=== PATIENT | female | born 1930 | race Caucasian/White ===

== ENCOUNTER 2017-02-02 08:59 | Outpatient (CLI) ==
[2016-06-08 11:54] VITALS: BMI 29.2
[2017-02-02 09:13] LABS: BASOPHILS # (AUTO) 0.1 K/uL (0-0.2); BASOPHILS % (AUTO) 1.3 % (0.0-3.0); EOSINOPHILS # (AUTO) 0.3 K/ul (0.0-0.7); EOSINOPHILS % (AUTO) 4.9 % (0.0-7.0); HEMATOCRIT 39.2 % (37.0-47.0); HEMOGLOBIN 12.9 g/dl (12.0-16.0); IMMATURE GRANULOCYTE % (AUTO) 0.3 % (0.0-5.0); LYMPHOCYTES # (AUTO) 1.4 K/uL (0.60-3.4); LYMPHOCYTES % (AUTO) 21.6 (10.0-50.0); MEAN CORPUSCULAR HEMOGLOBIN 32.9 pg (27.0-31.0); MEAN CORPUSCULAR HGB CONC 32.9 (31.8-35.4); MONOCYTES # (AUTO) 0.5 K/uL (0.4-2.0); MONOCYTES % (AUTO) 7.2 (0-10); NEUTROPHILS # (AUTO) 4.1 K/ul (2.0-6.9); NEUTROPHILS % (AUTO) 64.7; PLATELET COUNT 199 10^3/uL (140-440); RED BLOOD COUNT 3.92 10^6/ul (4.20-5.40); WHITE BLOOD COUNT 6.38 K/ul (4.6-10.2)
[2017-02-02 09:52] LABS: ALBUMIN 3.8 g/dL (3.4-5.0); ALBUMIN/GLOBULIN RATIO 1.06; ANION GAP 15.1; BILIRUBIN,TOTAL 0.72 mg/dL (0.00-1.20); BUN/CREATININE RATIO 21.73; CALCIUM 9.8 mg/dL (8.2-10.2); CHOL/HDL RATIO 2.9 (4.5-5.5); CREATININE 1.84 mg/dL (0.60-1.30); POTASSIUM 5.1 mmol/L (3.5-5.10); TOTAL PROTEIN 7.4 g/dL (5.8-8.1)
== END 2017-02-02 09:00 | disposition home or self-care (01) ==
LOC: LAB 08:59
PROVIDERS: ATTEND Nurse Practitioner Family
DX: E55.9 Vitamin D deficiency, unspecified (principal); I10 Essential (primary) hypertension; Z72.0 Tobacco use
CPT/HCPCS: 36415; 80053; 80061; 82306; 84443; 85025

== ENCOUNTER 2017-08-04 10:12 | Outpatient (CLI) ==
[2016-06-08 11:54] VITALS: BMI 29.2
[2017-08-04 10:32] LABS: BASOPHILS # (AUTO) 0.1 K/uL (0-0.2); BASOPHILS % (AUTO) 0.7 % (0.0-3.0); EOSINOPHILS # (AUTO) 0.3 K/ul (0.0-0.7); HEMATOCRIT 36.6 % (37.0-47.0); HEMOGLOBIN 11.9 g/dl (12.0-16.0); IMMATURE GRANULOCYTE % (AUTO) 0.6 % (0.0-5.0); LYMPHOCYTES # (AUTO) 1.1 K/uL (0.60-3.4); MEAN CORPUSCULAR HEMOGLOBIN 33.1 pg (27.0-31.0); MEAN CORPUSCULAR HGB CONC 32.5 (31.8-35.4); MEAN CORPUSCULAR VOLUME 101.9 fl (81.0-99.0); MONOCYTES # (AUTO) 0.6 K/uL (0.4-2.0); MONOCYTES % (AUTO) 7.1 (0-10); NEUTROPHILS # (AUTO) 5.9 K/ul (2.0-6.9); NEUTROPHILS % (AUTO) 73.6; PLATELET COUNT 145 10^3/uL (140-440); RED BLOOD COUNT 3.59 10^6/ul (4.20-5.40); WHITE BLOOD COUNT 8.05 K/ul (4.6-10.2)
[2017-08-04 10:52] LABS: ALBUMIN 3.4 g/dL (3.4-5.0); ALBUMIN/GLOBULIN RATIO 0.87; ANION GAP 13.9; BILIRUBIN,TOTAL 0.8 mg/dL (0.00-1.20); BUN/CREATININE RATIO 21.71; CALCIUM 9.6 mg/dL (8.2-10.2); CHOL/HDL RATIO 2.6 (4.5-5.5); CREATININE 1.98 mg/dL (0.60-1.30); POTASSIUM 4.9 mmol/L (3.5-5.10); TOTAL PROTEIN 7.3 g/dL (5.8-8.1)
--- NOTE | 2017-08-04 11:18 | DI ---
EXAM: Two views of the chest. History: Acute upper respiratory infection. Comparison: Chest radiograph 06/08/2016 Findings: Heart is mildly enlarged. Atherosclerotic vascular calcifications. Pacer device. IVC fi lter seen within the upper abdomen. Bibasilar subsegmental atelectasis. No definite acute infiltrat es. No appreciable pleural fluid and no pneumothorax. Fibrosis again seen within the lungs. Impression: 1. No definite acute infiltrates. 2. Mild cardiomegaly. 3. Pulmonary fibrosis
== END 2017-08-04 10:13 | disposition home or self-care (01) ==
LOC: RAD 10:12
PROVIDERS: ATTEND Emergency Medicine
DX: J06.9 Acute upper respiratory infection, unspecified (principal); I50.9 Heart failure, unspecified; J44.9 Chronic obstructive pulmonary disease, unspecified; I10 Essential (primary) hypertension; E78.5 Hyperlipidemia, unspecified; Z72.0 Tobacco use
CPT/HCPCS: 36415; 80053; 80061; 85025

== ENCOUNTER 2017-08-09 16:20 | Inpatient (IN) | payer OTHER ==
[2017-08-09] MEDS ORDERED: DUONEB NEB STA (16:29)
[2017-08-09] MEDS ORDERED: SOLU-MEDROL 125 MG IVP STA (16:46)
--- NOTE | 2017-08-09 17:39 | CT ---
EXAM: CT of the chest without contrast History: Short of breath and cough. Comparison: Chest radiograph 08/04/2017, chest CT 11/11/2015 Technique: Multiplanar CT images through the thorax were obtained without the administration of IV c ontrast Findings: Heart is enlarged. Coronary calcifications. No pericardial effusion. No pathologically e nlarged thoracic lymph nodes. Great vessels are unremarkable. Calcified granulomas again seen withi n the thorax. No consolidated pneumonia. No pleural fluid and no pneumothorax. No change in the pu lmonary fibrosis. No suspicious lung nodules or lung masses. Within the visualized upper abdomen, nonspecific bowel gas pattern with ileus suggested on the student dean film. Metallic density seen within the IVC could represent a filter but is only partially visualized . Correlate clinically. No acute osseous abnormalities. Osteopenia and degenerative changes of the s pine. Impression: 1. Stable cardiomegaly and coronary artery disease. 2. No change in the pulmonary fibrosis. 3. No acute infiltrates.
[2017-08-09] MEDS ORDERED: ROCEPHIN 1 GM in SODIUM CHLORIDE 50 ML IV STA (18:05)
--- NOTE | 2017-08-09 18:08 | ED.PDOC ---
General ED Provider: Dr. CARA GUDINO Chief Complaint: Shortness of Air Stated Complaint: short of breath cough flu like symptoms Time Seen by Physician: 16:27 Mode of Arrival: Wheelchair Information Source: Patient Exam Limitations: No limitations Primary Care Provider: JOSE BOJORQUEZ Nursing and Triage Documentation Reviewed and Agree: Yes Reviewed sepsis parameters & appropriate labs ordered?: Yes (seen with entire nursing staff and [employer]) System Inflammatory Response Syndrome: Not Applicable Sepsis Protocol: For patient's 13 years and over: Temp is 96.8 and below OR 101 and greater Pulse >90 BPM Resp >20/minute Acutely Altered Mental Status Are patient's symptoms suggestive of a new infection, such as: -Pneumonia -Skin, Soft Tissue -Endocarditis -UTI -Bone, Joint Infection -Implantable Device -Acute Abdominal Infection -Wound Infection -Meningitis -Blood Stream Catheter Infection -Unknown Respiratory Complaint Exam - Respiratory Complaint/Exam Onset/Duration: 3 DAYS WORSE TODAY COUGHING Symptoms Are: Still present Timing: Intermittent Initial Severity: Moderate Current Severity: Mild Location: Throat, Chest Character: Reports: Non-productive cough, Dry cough Alleviating: Reports: None Associated Signs and Symptoms: Reports: URI, Nasal congestion. Denies: Rapid breathing, Dyspnea, Fever, Chills, Chest pain, Pleuritic chest pain, Wheezing, Hemoptysis, Dizziness, Calf pain, Calf swelling, Edema, Hoarseness, Sinus discomfort, Vomiting, Sore throat, Weight loss, Decreased oral intake, Increased thirst, Increased appetite, Increased urination Related History: Reports: Similar episode History of Healthcare-Acquired Pneumonia: No Related Surgical History: Reports: None Pulmonary Embolism Risk Factors: Bedrest Cardiac Risk Factors: Reports: Prior [place], Elevated lipids Pseudomonas Risk Factors: Reports: Chronic Lung Disease Tuberculosis Risk Factors: Reports: None Status Asthmaticus Risk Factors: Reports: None Home Oxygen Use: No Recent Stress Test: No Recent Echo/LV Function: No Current Antibiotic Use: No Respiratory Distress: None Inadequate Respiratory Effort: No Dysphagia Present: No Stridor Present: No JVD Present: No Accessory Muscle Use: No Retractions: Not Present Diminished Breath Sounds: No Prolonged Respiration: Expiratory phase Sinus Tenderness: None Grunting Respirations: No Kussmaul Respirations: No Differential Diagnoses: Pneumonia, Bronchitis, Lower Resp. Infection Review of Systems - Review Of Systems Constitutional: Reports: Malaise Eyes: Reports: No symptoms Ears, Nose, Mouth, Throat: Reports: No symptoms Respiratory: Reports: Cough Cardiac: Reports: No symptoms GI: Reports: No symptoms : Reports: No symptoms Musculoskeletal: Reports: No symptoms Skin: Reports: No symptoms Neurological: Reports: No symptoms Endocrine: Reports: No symptoms Hematologic/Lymphatic: Reports: No symptoms All Other Systems: Reviewed and Negative Past Medical History - Past Medical History Endocrine: Reports: Dyslipidemia Cardiovascular: Reports: [place] Respiratory: Reports: COPD, Asthma Hematological: Reports: None Gastrointestinal: Reports: GERD Genitourinary: Reports: None Neuro/Psych: Reports: Anxiety, Depression Musculoskeletal: Reports: None Cancer: Reports: None Last Menstrual Period: na - Surgical History General Surgical History: Reports: Appendectomy, Pacemaker, Stent Placement - Family History Family History: Reports: Unknown - Social History Smoking Status: Current some day smoker Hx Substance Use: No Alcohol Screening: None - Immunizations Tetanus Shot up to Date: No Physical Exam - Physical Exam Appearance: Ill-appearing Ill-appearing: Moderate Pain Distress: Moderate Eyes: ANTOLIN, EOMI, Conjunctiva clear ENT: Ears normal, Nose normal, Oropharynx normal Respiratory: Rhonchi, Wheezes Cardiovascular: RRR, Pulses normal, No rub, No murmur GI/: Soft, Nontender, No masses, Bowel sounds normal, No Organomegaly Musculoskeletal: Normal strength, ROM intact, No edema, No calf tenderness Skin: Warm, Dry, Normal color Neurological: Sensation intact, Motor intact, Reflexes intact, Cranial nerves intact, Alert, Oriented Psychiatric: Affect appropriate, Mood appropriate Interpretation - Radiology Interpretation Radiology Interpretation By: Radiologist Radiology Results: No acute changes Critical Care Note - Critical Care Note Total Time (mins): 0 Course - Course Hematology/Chemistry: 08/09/17 16:56 08/09/17 16:56 Orders, Labs, Meds: Lab Review 08/09/17 08/09/17 08/09/17 16:56 16:56 16:56 WBC 14.03 H RBC 3.92 L Hgb 12.9 Hct 39.7 MCV 101.3 H MCH 32.9 H MCHC 32.5 RDW Coeff of Thuy 14.1 Plt Count 200 Immature Gran % (Auto) 0.4 Neut % (Auto) 86.8 Lymph % (Auto) 6.2 L [place] % (Auto) 4.9 Eos % (Auto) 0.9 Baso % (Auto) 0.8 Immature Gran # (Auto) 0.1 Neut # 12.2 H Lymph # 0.9 [place] # 0.7 Eos # 0.1 Baso # 0.1 Sodium 138 Potassium 5.1 Chloride 98 Carbon Dioxide 31 Anion Gap 14.1 BUN 41 H Creatinine 2.01 H Estimated GFR (MDRD) 24.00 BUN/Creatinine Ratio 20.39 Glucose 109 Lactic Acid 9.3 Calcium 9.8 Total Bilirubin 0.7 AST 27 ALT 19 Alkaline Phosphatase 201 H Total Creatine Kinase 40 Troponin I 0.0240 Total Protein 8.0 Albumin 3.7 Globulin 4.3 Albumin/Globulin Ratio 0.86 Orders Category Date Time Status ABG DRAW REQUEST Stat CARDIO 08/09/17 16:46 Ordered EKG-(ED ONLY) Stat CARDIO 08/09/17 16:29 Completed NEBULIZER TREATMENT Stat CARDIO 08/09/17 16:29 Completed ED IV/MEDIPORT/POWERPORT .ONCE EMERGENCY 08/09/17 16:46 Active ABG Stat LAB 08/09/17 16:46 Ordered BLOOD CULTURE (ED ONLY) Stat LAB 08/09/17 16:56 Received CBC W/ AUTO DIFF Stat LAB 08/09/17 16:56 Completed COMPREHENSIVE METABOLIC PANEL Stat LAB 08/09/17 16:56 Completed CREATINE KINASE Stat LAB 08/09/17 16:56 Completed LACTIC ACID Stat LAB 08/09/17 16:56 Completed MOLECULAR FLU A/B Stat LAB 08/09/17 17:30 Received PROCALCITONIN Stat LAB 08/09/17 16:56 Received STREP SCREEN Stat LAB 08/09/17 17:30 Received TROPONIN I Stat LAB 08/09/17 16:56 Completed 0.9 % Sodium Chloride [Saline Flush] MEDS 08/09/17 16:46 Active 1 syr IVF PRN PRN Ceftriaxone Sodium [Rocephin] 1 gm MEDS 08/09/17 18:05 Ordered 0.9 % Sodium Chloride [Sodium Chloride] 50 ml IV ONCE Ipratropium/Albuterol Neb [Duoneb] MEDS 08/09/17 16:29 Discontinued 1 vial NEB ONCE STA Methylprednisolone Sod Succ/Pf [Solu-Medrol 125 mg] MEDS 08/09/17 16:46 Discontinued 125 [address] IVP ONCE [address] CHEST W/O CONTRAST Stat RADS 08/09/17 16:47 Completed Medications Generic Name Dose Route Start Last Admin Trade Name Freq PRN Reason Stop Dose Admin Ceftriaxone Sodium 1 gm/ 50 mls @ 75 mls/hr 08/09/17 18:05 Sodium Chloride IV 08/09/17 18:44 ONCE STA Sodium Chloride 1 syr 08/09/17 16:46 08/09/17 17:58 Saline Flush IVF 1 syr PRN PRN Administration To flush IV Discontinued Medications Generic Name Dose Route Start Last Admin Trade Name Phil PRN Reason Stop Dose Admin Albuterol/Ipratropium 1 vial 08/09/17 16:29 08/09/17 17:08 Duoneb NEB 08/09/17 16:30 1 vial ONCE STA Administration Methylprednisolone Sodium Succinate 125 mg 08/09/17 16:46 08/09/17 17:58 Solu-Medrol 125 Mg IVP 08/09/17 16:47 125 mg ONCE STA Administration Vital Signs: Temp Pulse Resp BP Pulse Ox 08/09/17 16:21 98.6 F 64 16 145/81 H 87 L Departure - Departure Time of Disposition: 19:00 Disposition: ADMITTED INPATIENT Discharge Problem: Shortness of breath at rest Instructions: Cold Symptoms (ED), Dyspnea (ED) Condition: Good Pt referred to PMD for follow-up: Yes Additional Instructions: Please call your Family Physician as soon as possible to schedule a follow-up appointment. Allergies/Adverse Reactions: Allergies No Known Allergies Allergy (Verified 08/09/17 16:34) Home Medications: Ambulatory Orders Fish Oil/Dha/Epa [Fish Oil 1,200 mg Fish Oil] 4,000 mg PO DAILY 05/26/14 Multivitamin 1 cap PO DAILY 05/26/14 Ascorbic Acid [Vitamin C] 1,000 mg PO d 03/30/16 Polyethylene Glycol 3350 [Miralax] 17 gm PO EVERY OTHER DAY 03/30/16 Cholecalciferol (Vitamin D3) [Vitamin D] 1 tab PO DAILY 06/08/16 Ferrous Gluconate [Iron] 1 tab PO DAILY 06/08/16 Losartan Potassium [Cozaar] 50 mg PO DAILY 06/08/16 Teriparatide [Forteo] 2.4 ml SQ DAILY 02/06/17 Disposition Discussed With: Patient
[2017-08-09] MEDS ORDERED: ROCEPHIN ONE (18:12)
[2017-08-09 20:35] VITALS: BMI 34.5
[2017-08-09] MEDS ORDERED: NON-FORMULARY MEDICATION (Ascorbic Acid [Vitamin C] 1,000 MG) PO SCH (21:15)
[2017-08-09] MEDS ORDERED: SOLU-MEDROL 125 MG ONE (21:22)
[2017-08-09] MEDS: SODIUM CHLORIDE 1,000 ML IV SCH (21:37)
[2017-08-09] MEDS: LOVENOX SUBCUT SCH (21:38)
[2017-08-09] MEDS: SOLU-MEDROL 40 MG IVP SCH (21:41)
[2017-08-09] MEDS ORDERED: ALBUTEROL 0.083% NEB NEB PRN (23:07)
[2017-08-09] MEDS: DUONEB NEB SCH (23:32)
[2017-08-09] MEDS ORDERED: DUONEB NEB ONE (23:32)
[2017-08-10] MEDS: DUONEB NEB SCH ×4 (04:33→23:22)
[2017-08-10] MEDS: ZANTAC PO SCH ×2 (05:42→17:52)
[2017-08-10] MEDS: COZAAR PO SCH (08:53)
[2017-08-10] MEDS: LIPITOR PO SCH (08:54)
[2017-08-10] MEDS: ZITHROMAX PO SCH (08:55)
[2017-08-10] MEDS: PLAVIX PO SCH (08:55)
[2017-08-10] MEDS: OMEGA-3 FISH OIL PO SCH (08:55)
[2017-08-10] MEDS: VITAMIN C PO SCH (08:56)
[2017-08-10] MEDS: MULTIVITAMIN TABLET PO SCH (08:56)
[2017-08-10] MEDS: FERROUS SULFATE PO SCH (08:56)
[2017-08-10] MEDS: BETAPACE PO SCH ×2 (08:56→20:47)
[2017-08-10] MEDS: ROCEPHIN 1 GM in SODIUM CHLORIDE 50 ML IV SCH (08:57)
[2017-08-10] MEDS: SOLU-MEDROL 40 MG IVP SCH ×2 (08:57→20:47)
[2017-08-10] MEDS: LOVENOX SUBCUT SCH (08:57)
[2017-08-10] MEDS ORDERED: DHA PO SCH (09:00)
[2017-08-10] MEDS ORDERED: NON-FORMULARY MEDICATION (Losartan Potassium 50 MG) PO SCH (09:00)
[2017-08-10] MEDS ORDERED: KEFLEX PO SCH (09:00)
[2017-08-10] MEDS ORDERED: EPA PO SCH (09:00)
[2017-08-10] MEDS ORDERED: FISH OIL PO SCH (09:00)
[2017-08-10] MEDS ORDERED: COMBIVENT RESPIMAT INHAL SPRAY IH SCH (09:00)
[2017-08-10] MEDS ORDERED: NON-FORMULARY MEDICATION (Multivitamin 1 CAP) PO SCH (09:00)
[2017-08-10] MEDS ORDERED: FERROUS GLUCONATE PO SCH (09:00)
[2017-08-10] MEDS: NON-FORMULARY MEDICATION (Calcitriol [Calcitriol] 0.25 MCG) PO SCH (10:00)
--- NOTE | 2017-08-10 10:08 | DI ---
EXAM: Chest one view, frontal view only. HISTORY: Shortness of breath. COMPARISON: 1 day prior. FINDINGS: Right-sided pacemaker again noted. Heart is enlarged. Atherosclerotic calcifications p resent. Chronic interstitial changes in both lungs, greatest in the bases again noted. No new conso lidation, pleural effusion or pneumothorax identified. No acute osseous abnormality is seen. Since the prior study, there has been no significant interval change. IMPRESSION: Interstitial fibrosis, greatest in the bases. No new pulmonary findings.
--- NOTE | 2017-08-10 12:55 | HP ---
DATE OF SERVICE: 08/09/17 CHIEF COMPLAINT: Shortness of breath HISTORY OF PRESENT ILLNESS: This is an 87 year old female came to the emergency room with cough and congestion. Going on the for the two weeks. The patient been seen at the [facility] given outpatient antibiotics for coughing. Shortness of breath was getting worse; coughing and getting yellow/green phlegm. The patient came to the emergency room as shortness of breath was getting worse. The patient was seen by Dr. Eubanks in the emergency room. Temperature at normal. Showed WBC for 14,000 with left shift. ABG showed the pH 7.425, pCO2 45.9, pO2 72, BUN 41, creatinine 2.0 and serology was negative. Ct chest showed some haziness but at that time the patient was admitted to the hospital secondary to the COPD exacerbation, bronchitis/pneumonia, dehydration, acute on chronic renal failure. REVIEW OF SYSTEMS: CONSTITUTIONAL: No fever, no chills. Weakness. Tiredness. HEENT: Normal. ENDOCRINE: No weight gain; no weight loss. CVS: No chest pain. No PND, no orthopnea. Shortness of breath. No PND, no orthopnea. RESPIRATORY: Cough, Congestion. No hemoptysis. GI: No nausea, no vomiting. No abdominal pain. No melena. : No hematuria. No polyuria. MUSCULOSKELETAL: No joint swelling. PSYCHIATRIC: Not anxious. No depression. No suicidal thoughts. No homicidal thoughts. SKIN: Intact, no open lesions. PAST MEDICAL HISTORY: Coronary artery disease with [place] COPD Chronic kidney disease Osteoarthritis Rheumatoid arthritis PAST SURGICAL HISTORY: Cataract surgery Carcinoma removed from the face. Heart stint Pacemaker PERSONAL HISTORY: The patient smokes since teens, no alcohol and no drugs. Family history is significant for the heart problems. MEDICATIONS: Multivitamin Fish oil Albuterol Ascorbic acid Polyethylene Glycol Losartan Ferrous sulfate Vitamin D Forteo Zantac Clotrimazole Calcitriol Cozaar Sotalol Lasix Atorvastatin Clopidogrel DUO NEBS Keflex. ALLERGIES: No known drug allergies PHYSICAL EXAMINATION: V/S: Blood pressure 145/81, respiratory rate 16, heart rate 64, temperature 98.6 , saturation 82 on 2 liters. GENERAL: Sick looking lady lying in the bed. HEENT: Atraumatic, normocephalic. No scleral icterus. Pallor positive. Mucosa dry. NECK: Supple. No JVD, no bruit. No lymphadenopathy. No thyromegaly. HEART: S1, S2 normal. No murmur. No cyanosis or clubbing. No ascites. LUNGS: Decreased with basilar crackles. Expiratory wheeze. No rales or rhonchi. ABDOMEN: Soft, nontender. Bowel sounds are active. No CVA tenderness. No rigidity or guarding. EXTREMITIES: No cyanosis, clubbing, 1+ edema. MUSCULOSKELETAL: Normal joints, no swelling. NEUROLOGIC: The patient is SKIN: Intact; no open lesions. LYMPHATIC: No lymph nodes palpable. LABS: WBC 14.03, hgb 12.9, hct 39.7, plt count 200, blood gasses pH 7.425, pCO2 45.9, pO2 72, sodium 138, potassium 4.5, chloride 98, bicarb 31, BUN 41, creatinine 2.01. ASSESSMENT: 1. Acute on chronic renal failure 2. COPD exacerbation secondary to the bronchitis/some basilar infiltrates so pneumonia 3. History of CAD 4. CHF 5. Hypertension 6. Rheumatoid arthritis PLAN: 1. CBC and CMP today and daily 2. Cardiac enzymes and troponin 3. IV fluids 4. Rocephin 5. DUO NEBS 6. Solu-Medrol TIME SPENT: MORE THAN 75 minutes MTDD
[2017-08-10] MEDS: SODIUM CHLORIDE 1,000 ML IV SCH (13:42)
[2017-08-10] MEDS: TERIPARATIDE SQ SCH (13:42)
[2017-08-10] MEDS: LOTRIMIN TP SCH ×2 (13:43→20:49)
--- NOTE | 2017-08-10 15:21 | PN ---
DATE OF SERVICE: 08/10/17 SUBJECTIVE: The patient was admitted with the COPD exacerbation and pneumonia, cough, congestion, shortness of breath and acute on chronic renal failure. The patient is still coughing and congested. Wheezing. REVIEW OF SYSTEMS: CONSTITUTIONAL: No fever, no chills. HEENT: Normal. ENDOCRINE: No weight gain, no weight loss. CVS: No angina symptoms. No CHF symptoms. No palpitations. No atypical chest pain for CAD. No shortness of breath. No PND, no orthopnea. RESPIRATORY: Cough, no hemoptysis. GI: No nausea, no vomiting. No abdominal pain. : No hematuria. No polyuria. MUSCULOSKELETAL:. No joint swelling. PSYCHIATRIC: Not anxious. No depression. No suicidal thoughts. No homicidal thoughts. SKIN: Intact. No rash. PHYSICAL EXAMINATION: V/S: Blood pressure 142/79, respiratory rate 20, heart rate 96.8 with saturation 95 on 2 liters. HEENT: Normocephalic, atraumatic. Mucosa dry. Pallor positive. No icterus. NECK: Supple. No JVD, no carotid bruit. No lymphadenopathy. LUNGS: Bilateral entry is decreased and basilar crackles. Defused wheezing. No rales or rhonchi. HEART: S1, S2 normal. No S3. No murmur, gallop or regurgitation. ABDOMEN: Soft, nontender. Bowel sounds active. No rigidity. No rebound or guarding. No CVA tenderness. EXTREMITIES: No clubbing, cyanosis. 1+ edema. MUSCULOSKELETAL: No joint swelling. NEUROLOGIC: Awake, alert, oriented times three. No focal deficit. LYMPHATIC: No lymph nodes palpable. SKIN: Intact. LABS: WBC 14.46, hgb 11.6, hct 36.0, plt count 164, Sodium 136, potassium 4.8, chloride 97, bicarb 31, BUN 46, creatinine 2.0 ASSESSMENT: 1. COPD exacerbation secondary to bronchitis and pneumonia 2. Hypoxemia 3. Acute on chronic renal failure 4. Coronary artery disease 5. Congestive heart failure 6. Diabetes 7. Hypertension 8. Dyslipidemia PLAN: 1. Continue Rocephin, Azithromycin, DUO NEBS, Solu-Medrol 2. IV fluids 3. Daily I&O's 4. Lovenox for the DVT prophylaxis. TIME SPENT: More than 35 minutes MTDD
[2017-08-11] MEDS: SODIUM CHLORIDE 1,000 ML IV SCH (02:58)
[2017-08-11] MEDS: ZANTAC PO SCH ×2 (05:36→17:22)
[2017-08-11] MEDS: DUONEB NEB SCH ×4 (05:50→23:18)
[2017-08-11] MEDS ORDERED: CEPACOL SORE THROAT LOZENGE MUCOUSMEMB PRN (07:45)
[2017-08-11] MEDS ORDERED: LASIX IVP STA (07:45)
[2017-08-11] MEDS ORDERED: NORCO 5-325 PO PRN (07:45)
[2017-08-11] MEDS: MULTIVITAMIN TABLET PO SCH (09:24)
[2017-08-11] MEDS: VITAMIN C PO SCH (09:24)
[2017-08-11] MEDS: ROCEPHIN 1 GM in SODIUM CHLORIDE 50 ML IV SCH (09:24)
[2017-08-11] MEDS: LIPITOR PO SCH (09:25)
[2017-08-11] MEDS: FERROUS SULFATE PO SCH (09:25)
[2017-08-11] MEDS: OMEGA-3 FISH OIL PO SCH (09:25)
[2017-08-11] MEDS: COZAAR PO SCH (09:26)
[2017-08-11] MEDS: MUCINEX PO SCH ×2 (09:26→20:55)
[2017-08-11] MEDS: ZITHROMAX PO SCH (09:26)
[2017-08-11] MEDS: BETAPACE PO SCH ×2 (09:26→20:55)
[2017-08-11] MEDS: LOVENOX SUBCUT SCH (09:27)
[2017-08-11] MEDS: LOTRIMIN TP SCH ×2 (09:27→20:56)
[2017-08-11] MEDS: PLAVIX PO SCH (09:27)
[2017-08-11] MEDS: MIRALAX PO SCH (09:29)
[2017-08-11] MEDS: TERIPARATIDE SQ SCH (09:50)
[2017-08-11] MEDS: SOLU-MEDROL 40 MG IVP SCH ×2 (09:54→20:55)
[2017-08-11] MEDS: NON-FORMULARY MEDICATION (Calcitriol [Calcitriol] 0.25 MCG) PO SCH (09:55)
[2017-08-12] MEDS: SODIUM CHLORIDE 1,000 ML IV SCH ×2 (00:22→10:35)
[2017-08-12] MEDS: DUONEB NEB SCH ×4 (03:50→23:50)
[2017-08-12] MEDS: ZANTAC PO SCH ×2 (05:35→17:09)
[2017-08-12] MEDS: ROCEPHIN 1 GM in SODIUM CHLORIDE 50 ML IV SCH (10:33)
[2017-08-12] MEDS: FERROUS SULFATE PO SCH (10:35)
[2017-08-12] MEDS: MUCINEX PO SCH ×2 (10:35→20:44)
[2017-08-12] MEDS: VITAMIN C PO SCH (10:36)
[2017-08-12] MEDS: MULTIVITAMIN TABLET PO SCH (10:36)
[2017-08-12] MEDS: PLAVIX PO SCH (10:37)
[2017-08-12] MEDS: LIPITOR PO SCH (10:37)
[2017-08-12] MEDS: BETAPACE PO SCH ×2 (10:37→20:44)
[2017-08-12] MEDS: COZAAR PO SCH (10:38)
[2017-08-12] MEDS: ZITHROMAX PO SCH (10:38)
[2017-08-12] MEDS: LOVENOX SUBCUT SCH (10:39)
[2017-08-12] MEDS: NON-FORMULARY MEDICATION (Calcitriol [Calcitriol] 0.25 MCG) PO SCH (10:39)
[2017-08-12] MEDS: LOTRIMIN TP SCH ×2 (10:40→20:44)
[2017-08-12] MEDS: OMEGA-3 FISH OIL PO SCH (10:40)
[2017-08-12] MEDS: SOLU-MEDROL 40 MG IVP SCH ×2 (10:40→20:18)
[2017-08-12] MEDS: TERIPARATIDE SQ SCH (10:49)
[2017-08-13] MEDS: SODIUM CHLORIDE 1,000 ML IV SCH ×2 (00:20→16:15)
[2017-08-13] MEDS: DUONEB NEB SCH ×4 (04:30→23:40)
[2017-08-13] MEDS: ZANTAC PO SCH ×3 (08:07→17:08)
[2017-08-13] MEDS: TERIPARATIDE SQ SCH (09:32)
[2017-08-13] MEDS: ROCEPHIN 1 GM in SODIUM CHLORIDE 50 ML IV SCH (09:33)
[2017-08-13] MEDS: LOVENOX SUBCUT SCH (09:33)
[2017-08-13] MEDS: COZAAR PO SCH (09:36)
[2017-08-13] MEDS: VITAMIN C PO SCH (09:36)
[2017-08-13] MEDS: LOTRIMIN TP SCH ×2 (09:36→20:38)
[2017-08-13] MEDS: MUCINEX PO SCH ×2 (09:37→20:37)
[2017-08-13] MEDS: BETAPACE PO SCH ×2 (09:37→20:37)
[2017-08-13] MEDS: LIPITOR PO SCH (09:37)
[2017-08-13] MEDS: PLAVIX PO SCH (09:38)
[2017-08-13] MEDS: MULTIVITAMIN TABLET PO SCH (09:38)
[2017-08-13] MEDS: OMEGA-3 FISH OIL PO SCH (09:39)
[2017-08-13] MEDS: MIRALAX PO SCH (09:40)
[2017-08-13] MEDS: FERROUS SULFATE PO SCH (09:40)
[2017-08-13] MEDS: SOLU-MEDROL 40 MG IVP SCH ×2 (09:41→21:07)
[2017-08-13] MEDS: NON-FORMULARY MEDICATION (Calcitriol [Calcitriol] 0.25 MCG) PO SCH (09:41)
--- NOTE | 2017-08-13 11:24 | CT ---
EXAM: CT scan of the abdomen and pelvis without contrast HISTORY: Highly BUN TECHNIQUE: Imaging of the abdomen and pelvis was performed without intravenous contrast. 3 mm thin axial images and coronal and sagittal reconstructions were provided for interpretation. Comparison none. FINDINGS: The liver, spleen, pancreas, adrenal glands and kidneys appear normal. The proximal urete rs are normal size. Calcifications are seen within the fritz of the kidneys bilaterally. This small bowel loops are normal caliber. There is no free air. No acute abnormalities are seen in the anteri or abdominal wall. IVC filter is present. Small gallstones are identified. The helical images obtained through the pelvis demonstrate a normal appearance of the rectum, urinary bladder. There is diverticular disease of the descending colon and sigmoid colon without acute infl ammation. There is a cystic lesion seen within the left ovary measuring up to 3.6 cm in height, 3.9 c m AP, 3.7 cm transverse. The appendix was not well seen. No definite inflammatory changes are seen i n the right lower quadrant. No lytic or blastic lesions are seen within the osseous structures. Smal l pleural effusions are seen bilaterally. The heart is normal size. Postoperative changes are seen w ithin the proximal left femur. IMPRESSION: No evidence of obstructive uropathy. There is no bowel obstruction. Diffuse diverticular disease of the descending colon and sigmoid colon without acute inflammation. Probable left ovarian cyst measuring up to 3.9 cm maximum. Continued follow-up evaluation with pelvi c ultrasound should be performed to check for resolution. Small bilateral pleural effusions.
[2017-08-13] MEDS ORDERED: MILK OF MAGNESIA PO STA (23:01)
[2017-08-14] MEDS: SODIUM CHLORIDE 1,000 ML IV SCH ×4 (03:53→21:42)
[2017-08-14] MEDS: DUONEB NEB SCH ×4 (04:38→23:06)
[2017-08-14] MEDS: ROCEPHIN 1 GM in SODIUM CHLORIDE 50 ML IV SCH (09:34)
[2017-08-14] MEDS: FERROUS SULFATE PO SCH (09:35)
[2017-08-14] MEDS: LOVENOX SUBCUT SCH (09:35)
[2017-08-14] MEDS: ZANTAC PO SCH ×2 (09:35→16:39)
[2017-08-14] MEDS: LOTRIMIN TP SCH ×2 (09:35→21:42)
[2017-08-14] MEDS: PLAVIX PO SCH (09:35)
[2017-08-14] MEDS: VITAMIN C PO SCH (09:35)
[2017-08-14] MEDS: COZAAR PO SCH (09:36)
[2017-08-14] MEDS: LIPITOR PO SCH (09:36)
[2017-08-14] MEDS: BETAPACE PO SCH ×2 (09:36→21:41)
[2017-08-14] MEDS: SOLU-MEDROL 40 MG IVP SCH ×2 (09:36→21:46)
[2017-08-14] MEDS: MULTIVITAMIN TABLET PO SCH (09:36)
[2017-08-14] MEDS: MUCINEX PO SCH ×2 (09:36→21:41)
[2017-08-14] MEDS: OMEGA-3 FISH OIL PO SCH (09:36)
[2017-08-14] MEDS: TERIPARATIDE SQ SCH (09:42)
[2017-08-14] MEDS: NON-FORMULARY MEDICATION (Calcitriol [Calcitriol] 0.25 MCG) PO SCH (09:42)
[2017-08-15] MEDS: DUONEB NEB SCH ×4 (04:24→23:48)
--- NOTE | 2017-08-15 07:04 | DI ---
EXAM: Chest two view, frontal and lateral views. HISTORY: Pneumonia follow-up. COMPARISON: 08/10/2017. FINDINGS: Right-sided pacemaker again noted. Heart is enlarged. Atherosclerotic calcifications are present. Bibasilar consolidation and diffuse increased interstitial markings are probably unchanged . No large pleural effusion or pneumothorax identified. No acute osseous abnormality identified. I nferior vena cava filter noted. IMPRESSION: Stable appearance of the chest.
[2017-08-15] MEDS: MIRALAX PO SCH (09:54)
[2017-08-15] MEDS: ROCEPHIN 1 GM in SODIUM CHLORIDE 50 ML IV SCH (09:54)
[2017-08-15] MEDS: LOTRIMIN TP SCH ×2 (09:54→20:25)
[2017-08-15] MEDS: LOVENOX SUBCUT SCH (09:55)
[2017-08-15] MEDS: LIPITOR PO SCH (09:55)
[2017-08-15] MEDS: ZANTAC PO SCH (09:55)
[2017-08-15] MEDS: BETAPACE PO SCH ×2 (09:55→20:25)
[2017-08-15] MEDS: OMEGA-3 FISH OIL PO SCH (09:55)
[2017-08-15] MEDS: PLAVIX PO SCH (09:55)
[2017-08-15] MEDS: MUCINEX PO SCH (09:55)
[2017-08-15] MEDS: MULTIVITAMIN TABLET PO SCH (09:55)
[2017-08-15] MEDS: VITAMIN C PO SCH (09:55)
[2017-08-15] MEDS: COZAAR PO SCH (09:56)
[2017-08-15] MEDS: FERROUS SULFATE PO SCH (09:56)
[2017-08-15] MEDS: SOLU-MEDROL 40 MG IVP SCH ×2 (09:56→20:07)
[2017-08-15] MEDS: NON-FORMULARY MEDICATION (Calcitriol [Calcitriol] 0.25 MCG) PO SCH (09:59)
[2017-08-15] MEDS: TERIPARATIDE SQ SCH (10:01)
[2017-08-15] MEDS ORDERED: KAYEXALATE SUSP PO STA (13:19)
--- NOTE | 2017-08-15 14:41 | PN ---
DATE OF SERVICE: 08/11/17 SUBJECTIVE: Still coughing; congested. Right now the patient even has head cold, sinuses are blocked. She is still short of breath. No fever, chills. REVIEW OF SYSTEMS: CONSTITUTIONAL: No fever, no chills. HEENT: Eyes and ears are normal. Nose has congestion. Mouth and throat normal. ENDOCRINE: No weight gain, no weight loss. CVS: Shortness of breath. No angina symptoms. No CHF symptoms. No palpitations. No atypical chest pain for CAD. No PND, no orthopnea. RESPIRATORY: No cough, no hemoptysis. GI: No nausea, no vomiting. No abdominal pain. : No hematuria. No polyuria. MUSCULOSKELETAL:. No joint swelling. PSYCHIATRIC: Not anxious. No depression. No suicidal thoughts. No homicidal thoughts. SKIN: Intact. No rash. PHYSICAL EXAMINATION: V/S: BP 126/68, respiratory rate 20, heart rate 74, temperature 97.6, saturation 98. HEENT: Normocephalic, atraumatic. Mucosa dry. NECK: Supple. No JVD, no carotid bruit. No lymphadenopathy. LUNGS: Decreased basilar crackles. Expiratory wheezing. HEART: S1, S2 normal. No S3. No murmur, gallop or regurgitation. ABDOMEN: Soft, nontender. Bowel sounds active. No rigidity. No rebound or guarding. No CVA tenderness. EXTREMITIES: 1+ edema. No clubbing, cyanosis. MUSCULOSKELETAL: No joint swelling. NEUROLOGIC: Awake, alert, oriented times three. No focal deficit. LYMPHATIC: No lymph nodes palpable. SKIN: Intact. LABS: White count 13.36, hemoglobin 11.0, hematocrit 33.9, platelet count 176. Sodium 139, potassium 5.2, chloride 104, bicarb 27, BUN 59, creatinine 1.58. Glucose 132. ASSESSMENT: 1. COPD EXACERBATION SECONDARY TO PNEUMONIA 2. ACUTE ON CHRONIC RENAL FAILURE 3. ACUTE ON CHRONIC HEART FAILURE 4. CAD 5. CHF 6. DYSLIPIDEMIA PLAN: 1. Will add Mucinex b.i.d. 2. Continue Azithromycin p.o. daily 3. Rocephin 1 gm daily 4. Duonebs 5. Lovenox 6. Solu-Medrol 40 mg q.12 7. IV fluids at 40 mL/hr 8. Will follow the patient in daily rounds TIME SPENT: More than 35 minutes MTDD
--- NOTE | 2017-08-15 14:49 | PN ---
DATE OF SERVICE: 08/12/17 SUBJECTIVE: Cough and congestion with some shortness of breath, unable to bring up phlegm. REVIEW OF SYSTEMS: CONSTITUTIONAL: No fever, no chills. HEENT: Normal. ENDOCRINE: No weight gain, no weight loss. CVS: Shortness of breath. No angina symptoms. No CHF symptoms. No palpitations. No atypical chest pain for CAD. No PND, no orthopnea. RESPIRATORY: Cough and congestion. No hemoptysis. GI: No nausea, no vomiting. No abdominal pain. : No hematuria. No polyuria. MUSCULOSKELETAL:. No joint swelling. PSYCHIATRIC: Not anxious. No depression. No suicidal thoughts. No homicidal thoughts. SKIN: Intact. No rash. PHYSICAL EXAMINATION: V/S: BP 137/72, respiratory rate 20, heart rate 62, temperature 97.5. Saturation 91%. HEENT: Normocephalic, atraumatic. Mucosa dry. Pallor positive. No icterus. NECK: Supple. No JVD, no carotid bruit. No lymphadenopathy. LUNGS: Basilar crackles with mild wheezing. No rales or rhonchi. HEART: S1, S2 normal. No S3. No murmur, gallop or regurgitation. ABDOMEN: Soft, nontender. Bowel sounds active. No rigidity. No rebound or guarding. No CVA tenderness. EXTREMITIES: 1+ edema. No clubbing, cyanosis. MUSCULOSKELETAL: No joint swelling. NEUROLOGIC: Awake, alert, oriented times three. No focal deficit. LYMPHATIC: No lymph nodes palpable. SKIN: Intact. LABS: White count 13.36, hemoglobin 11.0, hematocrit 33.9, platelet count 176. Sodium 139, potassium 5.2, chloride 104, bicarb 27, BUN 59, creatinine 1.81, glucose 132. ASSESSMENT: 1. COPD EXACERBATION SECONDARY TO BRONCHITIS 2. ACUTE ON CHRONIC RENAL FAILURE 3. CAD 4. CHF PLAN: 1. Continue breathing treatments 2. Duonebs 3. Xopenex 4. Rocephin 5. Azithromycin 6. Solu-Medrol 7. IV fluids at 40 mL/hr 8. Sotalol 80 q.12 TIME SPENT: More than 35 minutes MTDD
[2017-08-15] MEDS: SODIUM CHLORIDE 1,000 ML IV SCH (14:50)
[2017-08-15] MEDS: COREG PO SCH (16:51)
[2017-08-16] MEDS: DUONEB NEB SCH ×3 (05:23→20:12)
--- NOTE | 2017-08-16 07:11 | PN ---
DATE OF SERVICE: 08/13/17 SUBJECTIVE: Admitted with COPD exacerbation, shortness of breath with minimal exertion and is still coughing. No fever, no chills. REVIEW OF SYSTEMS: CONSTITUTIONAL: No fever, no chills. HEENT: Normal. ENDOCRINE: No weight gain, no weight loss. CVS: No angina symptoms. No CHF symptoms. No palpitations. No atypical chest pain for CAD. Shortness of breath on minimal exertion. No PND, no orthopnea. RESPIRATORY: Cough. No hemoptysis. GI: No nausea, no vomiting. No abdominal pain. : No hematuria. No polyuria. MUSCULOSKELETAL:. No joint swelling. PSYCHIATRIC: Not anxious. No depression. No suicidal thoughts. No homicidal thoughts. SKIN: Intact. No rash. PHYSICAL EXAMINATION: V/S: BP 149/96, respiratory rate 16, heart rate 76, temperature 97.4. Saturation 99% on 3.5L. HEENT: Normocephalic, atraumatic. Mucosa dry. NECK: Supple. No JVD, no carotid bruit. No lymphadenopathy. LUNGS: Bilateral entry is decreased. Basilar crackles. HEART: S1, S2 normal. No S3. No murmur, gallop or regurgitation. ABDOMEN: Soft, nontender. Bowel sounds active. No rigidity. No rebound or guarding. No CVA tenderness. EXTREMITIES: No clubbing, cyanosis or pedal edema. MUSCULOSKELETAL: Grossly intact. NEUROLOGIC: Awake, alert. No focal deficit. LYMPHATIC: No lymph nodes palpable. SKIN: Intact. LABS: Sodium 139, potassium 5.2, chloride 104, bicarb 27, BUN 59, creatinine 1.18. White count 13.36, hemoglobin 11.3, hematocrit 33.9, platelet count 176. ASSESSMENT: 1. COPD EXACERBATION SECONDARY TO BRONCHITIS 2. SHORTNESS OF BREATH 3. ACUTE ON CHRONIC RENAL FAILURE 4. CAD 5. CHF PLAN: 1. Will get chest x-ray 2. Continue Albuterol 3. Rocephin 1 gm daily 4. Plavix 5. Lovenox for DVT prophylaxis 6. Hydrocodone 7. Duonebs 8. Losartan 9. IV fluids at 40 mL/hr 10. Will get CBC, CMP today TIME SPENT: More than 30 minutes MTDD
[2017-08-16] MEDS: SODIUM CHLORIDE 1,000 ML IV SCH (07:43)
[2017-08-16] MEDS ORDERED: ZITHROMAX PO STA (07:52)
[2017-08-16] MEDS ORDERED: KAYEXALATE SUSP PO STA (07:54)
[2017-08-16] MEDS: LIPITOR PO SCH (08:48)
[2017-08-16] MEDS: BETAPACE PO SCH ×2 (08:49→20:37)
[2017-08-16] MEDS: PLAVIX PO SCH (08:49)
[2017-08-16] MEDS: SOLU-MEDROL 40 MG IVP SCH ×2 (08:50→20:12)
[2017-08-16] MEDS: TERIPARATIDE SQ SCH (10:02)
[2017-08-16] MEDS: LOVENOX SUBCUT SCH (10:03)
[2017-08-16] MEDS: LOTRIMIN TP SCH ×2 (10:03→20:37)
[2017-08-16] MEDS: COREG PO SCH ×2 (10:04→17:30)
--- NOTE | 2017-08-16 10:56 | DI ---
EXAM: Chest two views HISTORY: Follow up bibasilar consolidation COMPARISON: 08/13/2017 TECHNIQUE: Two views of the chest were performed FINDINGS: Right-sided cardiac pacer. Heart is enlarged, unchanged. Mediastinal contour unchanged. Bibasilar consolidation. Small pleural effusion. No visible pneumothorax. Heart is enlarged, uncha nged. Mediastinal contour unchanged. IMPRESSION: Bibasilar consolidation likely representing pneumonia, unchanged. Small left pleural eff usion.
--- NOTE | 2017-08-16 15:43 | PN ---
DATE OF SERVICE: 08/16/17 SUBJECTIVE: The patient still some shortness of breath with minimal exertion, coughing and congestion. BUN and Creatinine are 71. The patient can get up and go to the bathroom but she still complaints about some shortness of breath. She has been more active then usual so far but worried about the kidney function. REVIEW OF SYSTEMS: CONSTITUTIONAL: No fever, no chills. HEENT: Normal. ENDOCRINE: No weight gain, no weight loss. CVS: No angina symptoms. No CHF symptoms. No palpitations. No atypical chest pain for CAD. No shortness of breath. No PND, no orthopnea. RESPIRATORY: Cough, no hemoptysis. GI: No nausea, no vomiting. No abdominal pain. : No hematuria. No polyuria. MUSCULOSKELETAL: No joint swelling. PSYCHIATRIC: Not anxious. No depression. No suicidal thoughts. No homicidal thoughts. SKIN: Intact. No rash. PHYSICAL EXAMINATION: V/S: Blood pressure 140/78, respiratory 20, heart rate 69, temperature 97.4 and saturation 96 on 2 liters. HEENT: Normocephalic, atraumatic. Mucosa dry. Pallor positive. No icterus. NECK: Supple. No JVD, no carotid bruit. No lymphadenopathy. LUNGS: Bilateral entry is decreased and basilar crackles. Clear to auscultation. No rales or rhonchi. HEART: S1, S2 normal. No S3. No murmur, gallop or regurgitation. ABDOMEN: Soft, nontender. Bowel sounds active. No rigidity. No rebound or guarding. No CVA tenderness. EXTREMITIES: No clubbing, cyanosis. 1+ edema. MUSCULOSKELETAL: No joint swelling. NEUROLOGIC: Awake, alert, oriented times three. No focal deficit. LYMPHATIC: No lymph nodes palpable. SKIN: Intact. LABS: Sodium 140, potassium 5.7, chloride 109, bicarb 23, BUN 72, creatinine 1.66, WBC 11.04. hgb 11.8, hct 36.9, plt count 200. ASSESSMENT: 1. Acute on chronic renal failure 2. COPD Exacerbation secondary to the bronchitis 3. CAD 4. CHF 5. Dyslipidemia PLAN: 1. Continue the Azithromycin 2. Lovenox for the DVT prophylaxis 3. Solu-Medrol 4. IV fluids 5. Coreg 6. Sotalol TIME SPENT: More than 35 minutes MTDD
[2017-08-17] MEDS: SODIUM CHLORIDE 1,000 ML IV SCH ×2 (00:09→17:03)
[2017-08-17] MEDS: DUONEB NEB SCH ×4 (04:21→22:46)
--- NOTE | 2017-08-17 08:34 | PN ---
DATE OF SERVICE: 08/14/17 SUBJECTIVE: The patient was admitted with COPD exacerbation and the patient now going into the renal failure acute on chronic. REVIEW OF SYSTEMS: CONSTITUTIONAL: No fever, no chills. HEENT: Normal. ENDOCRINE: No weight gain, no weight loss. CVS: No angina symptoms. No CHF symptoms. No palpitations. No atypical chest pain for CAD. No shortness of breath. No PND, no orthopnea. RESPIRATORY: Cough is less, no hemoptysis. Breathing is better. GI: No nausea, no vomiting. No abdominal pain. : No hematuria. No polyuria. MUSCULOSKELETAL: No joint swelling. PSYCHIATRIC: Not anxious. No depression. No suicidal thoughts. No homicidal thoughts. SKIN: Intact. No rash. PHYSICAL EXAMINATION: V/S: Blood pressure 126/67, respiratory rate 20, heart rate 70, temperature 97 and saturation is 97 on 2 liters. HEENT: Normocephalic, atraumatic. Mucosa dry. Pallor positive. No icterus. NECK: Supple. No JVD, no carotid bruit. No lymphadenopathy. LUNGS: Decreased and basilar crackles. No rales or rhonchi. HEART: S1, S2 normal. No S3. No murmur, gallop or regurgitation. ABDOMEN: Soft, nontender. Bowel sounds active. No rigidity. No rebound or guarding. No CVA tenderness. EXTREMITIES: No clubbing, cyanosis. 1+ edema. MUSCULOSKELETAL: No joint swelling. NEUROLOGIC: Awake, alert, oriented times three. No focal deficit. LYMPHATIC: No lymph nodes palpable. SKIN: Intact. LABS: WBC 9.38, hgb 11.9, hct 38.6, plt count 151, sodium 136, potassium 5.6, chloride 105, bicarb 21, BUN 70, creatinine 1.92. CT of abdomen did not show any acute findings. ASSESSMENT: 1. Acute on chronic renal failure 2. COPD exacerbation secondary to the bronchitis 3. CAD 4. CHF PLAN: 1. Continue IV fluids at 60ml per hour 2. Daily I&O's TIME SPENT: More than 30 minutes MTDD
[2017-08-17] MEDS: LOVENOX SUBCUT SCH (08:45)
[2017-08-17] MEDS: SOLU-MEDROL 40 MG IVP SCH ×2 (08:45→20:31)
[2017-08-17] MEDS: MIRALAX PO SCH (08:45)
[2017-08-17] MEDS: BETAPACE PO SCH ×2 (08:46→20:28)
[2017-08-17] MEDS: ZITHROMAX PO SCH (08:46)
[2017-08-17] MEDS: LIPITOR PO SCH (08:46)
[2017-08-17] MEDS: PLAVIX PO SCH (08:46)
[2017-08-17] MEDS: COREG PO SCH ×2 (08:46→17:03)
[2017-08-17] MEDS: LOTRIMIN TP SCH ×2 (08:57→20:28)
[2017-08-17] MEDS: TERIPARATIDE SQ SCH (17:03)
[2017-08-18] MEDS: DUONEB NEB SCH ×4 (04:22→23:36)
[2017-08-18] MEDS: CARDIZEM PO SCH ×3 (09:22→20:31)
[2017-08-18] MEDS: PREDNISONE PO SCH ×2 (09:22→16:36)
[2017-08-18] MEDS: TERIPARATIDE SQ SCH (09:23)
[2017-08-18] MEDS: LIPITOR PO SCH (09:23)
[2017-08-18] MEDS: ZITHROMAX PO SCH (09:23)
[2017-08-18] MEDS: COREG PO SCH ×2 (09:23→16:36)
[2017-08-18] MEDS: PLAVIX PO SCH (09:23)
[2017-08-18] MEDS: LOVENOX SUBCUT SCH (09:23)
[2017-08-18] MEDS: LOTRIMIN TP SCH ×2 (09:24→20:31)
--- NOTE | 2017-08-18 10:22 | RS.PTINEVL ---
Subjective - Patient information Date of Evaluation: 08/18/17 Date of Arrival on Unit: 08/09/17 Usual Living Arrangement: Alone Living Arrangement Comments: self Home Environment: Apartment, Level/No stairs Medical History: Hypertension, Arthritis Medical History Comments:: PACEMAKER, chronic kidney disease, CAD Subjective Information/ Patient Comments:: Patient reports using a rolling walker all the time at home. States she has always been short of breath with activity and states it is her own fault because she smoked all her life. States she hopes to go home soon. States she does have help at home when she needs it. - Level of function Prior to this admission, the patient could do the following:: Independent Selfcare, Independent ADL's, Independent Ambulation Current Equipment Used at Home: Walker, oxygen, Interventions - Objective Patient Orientation: Person, Place, Time, Situation Current Interventions: IV's, Oxygen Range of Motion - ROM Right Upper Extremity AROM: WFL's Left Upper Extremity AROM: WFL's Right Lower Extremity AROM: WFL's Left Lower Extremity AROM: WFL's Muscle Strength - Muscle Strength Comments:: Muscle strength generally 4 to 4+/5. Balance - Sitting Balance and Reactions Static Sitting Balance: Good Dynamic Sitting Balance: Good - Standing Balance and Reactions Static Standing Balance: Good Dynamic Standing Balance: Good Functional Mobility - Bed Mobility Scooting: Independent Supine to Sit: Independent - Transfers Sit to Stand: Set Up Only Stand to Sit: Set Up Only Stand Pivot Transfers: Supervision - Safety Awareness Safety Awareness: Good Ambulation - Ambulation Weight Bearing Status: FWB Assistive Device Used: Rolling Walker Distance: 60 feet Assistance needed with Ambulation: Supervision (for IV pole and oxygen tank) Gait Deviations: Forward posture, Short stride Factors Affecting Ambulation: Breathing/O2 Saturation Treatment time - Time with patient Total treatment time: 16 (mins) Patient Education - Education Patient Education: Education of diagnosis, Home Safety Teaching Recipient: Patient Teaching Methods: Discussion Assessment - Assessment Further Therapy Indicated?: No Comments: Patient presents to be at a high level of function. Her only need for assistance with all mobility is for the IV pole and oxygen tank. Her primary limitation at this time is her breathing, which she states has been an impairment for years. She demonstrates no skilled need for therapy in the hospital setting, but may benefit from Home Health therapy services. Plan Other:: Patient may benefit from Home Health services Frequency of Treatment: One time treatment Duration of Treatment: One Time Treatment Anticipated Discharge Destination: Home Has the Physician been added for Co-signature?: Yes
[2017-08-18] MEDS: SODIUM CHLORIDE 1,000 ML IV SCH (11:05)
--- NOTE | 2017-08-18 13:15 | DI ---
EXAM: Chest two views HISTORY: Oxygen at liters COMPARISON: 08/16/2017 TECHNIQUE: Two views of the chest were performed FINDINGS: Right-sided cardiac pacer. Heart is enlarged and unchanged. Mediastinal contour unchange d. Atherosclerosis. Bibasilar consolidation appears unchanged. Small left pleural effusion. No vis ible pneumothorax. No change from prior examination. IMPRESSION: Bibasilar consolidation likely representing pneumonia. Small left pleural effusion. No change from prior examination.
[2017-08-19] MEDS: CARDIZEM PO SCH ×3 (04:27→20:35)
[2017-08-19] MEDS: SODIUM CHLORIDE 1,000 ML IV SCH (04:27)
[2017-08-19] MEDS: DUONEB NEB SCH ×4 (04:33→20:06)
[2017-08-19] MEDS: PLAVIX PO SCH (09:32)
[2017-08-19] MEDS: LIPITOR PO SCH (09:33)
[2017-08-19] MEDS: ZITHROMAX PO SCH (09:33)
[2017-08-19] MEDS: COREG PO SCH ×2 (09:33→17:16)
[2017-08-19] MEDS: LOVENOX SUBCUT SCH (09:33)
[2017-08-19] MEDS: PREDNISONE PO SCH ×2 (09:33→17:16)
[2017-08-19] MEDS: MIRALAX PO SCH (09:34)
[2017-08-19] MEDS: TERIPARATIDE SQ SCH (09:34)
[2017-08-19] MEDS: LOTRIMIN TP SCH ×2 (09:35→20:37)
[2017-08-19] MEDS: NON-FORMULARY MEDICATION (Calcitriol [Calcitriol] 0.25 MCG) PO SCH (09:35)
[2017-08-20] MEDS: SODIUM CHLORIDE 1,000 ML IV SCH (01:55)
[2017-08-20] MEDS: DUONEB NEB SCH ×4 (05:58→19:56)
[2017-08-20] MEDS: CARDIZEM PO SCH ×3 (06:07→21:20)
[2017-08-20] MEDS: LIPITOR PO SCH (08:33)
[2017-08-20] MEDS: TERIPARATIDE SQ SCH (08:33)
[2017-08-20] MEDS: PREDNISONE PO SCH ×2 (08:33→16:29)
[2017-08-20] MEDS: PLAVIX PO SCH (08:33)
[2017-08-20] MEDS: LOTRIMIN TP SCH ×2 (08:33→21:20)
[2017-08-20] MEDS: COREG PO SCH ×2 (08:33→16:29)
[2017-08-20] MEDS: LOVENOX SUBCUT SCH (08:33)
[2017-08-20] MEDS: ZITHROMAX PO SCH (08:33)
[2017-08-20] MEDS: MUCINEX PO SCH ×2 (08:33→21:20)
[2017-08-20] MEDS: ZAROXOLYN PO SCH (08:34)
[2017-08-20] MEDS: NON-FORMULARY MEDICATION (Calcitriol [Calcitriol] 0.25 MCG) PO SCH (08:34)
[2017-08-20] MEDS ORDERED: CITRATE OF MAGNESIA PO STA (10:53)
[2017-08-20] MEDS ORDERED: SODIUM CHLORIDE 1,000 ML IV SCH (18:58)
[2017-08-21] MEDS: MUCOMYST 20% NEB NEB SCH ×3 (03:45→22:30)
[2017-08-21] MEDS: SODIUM CHLORIDE 1,000 ML IV SCH (03:55)
[2017-08-21] MEDS: DUONEB NEB SCH ×4 (04:47→22:30)
[2017-08-21] MEDS: CARDIZEM PO SCH ×3 (05:15→20:55)
[2017-08-21] MEDS: COREG PO SCH ×2 (08:34→16:31)
[2017-08-21] MEDS: MIRALAX PO SCH (08:34)
[2017-08-21] MEDS: LOVENOX SUBCUT SCH (08:34)
[2017-08-21] MEDS: PLAVIX PO SCH (08:34)
[2017-08-21] MEDS: LIPITOR PO SCH (08:35)
[2017-08-21] MEDS: PREDNISONE PO SCH ×2 (08:35→16:31)
[2017-08-21] MEDS: ZAROXOLYN PO SCH (08:35)
[2017-08-21] MEDS: LOTRIMIN TP SCH ×2 (08:35→20:54)
[2017-08-21] MEDS: MUCINEX PO SCH ×2 (08:35→20:55)
[2017-08-21] MEDS: NON-FORMULARY MEDICATION (Calcitriol [Calcitriol] 0.25 MCG) PO SCH (08:35)
[2017-08-21] MEDS: TERIPARATIDE SQ SCH (08:35)
[2017-08-21] MEDS ORDERED: LASIX IVP STA (09:05)
--- NOTE | 2017-08-21 14:34 | PN ---
DATE OF SERVICE: 08/18/17 SUBJECTIVE: The patient was able to walk to the bathroom by herself and walk with a walker. Still some shortness of breath and resting making it better. Otherwise, urine output has been increased. No PND, no orthopnea. REVIEW OF SYSTEMS: CONSTITUTIONAL: No fever, no chills. HEENT: Normal. ENDOCRINE: No weight gain, no weight loss. CVS: No angina symptoms. No CHF symptoms. No palpitations. No atypical chest pain for CAD. Shortness of breath. No PND, no orthopnea. RESPIRATORY: No cough, no hemoptysis. GI: No nausea, no vomiting. No abdominal pain. : No hematuria. No polyuria. MUSCULOSKELETAL: No joint swelling. PSYCHIATRIC: Not anxious. No depression. No suicidal thoughts. No homicidal thoughts. SKIN: Intact. No rash. PHYSICAL EXAMINATION: V/S: BP 131/79, respiratory rate 20, heart rate 66, temperature 97. Saturation 93 on 2L. HEENT: Normocephalic, atraumatic. Mucosa dry. Pallor positive. No icterus. NECK: Supple. No JVD, no carotid bruit. No lymphadenopathy. LUNGS: Decreased basilar crackles. Clear to auscultation. No rales or rhonchi. HEART: S1, S2 normal. No S3. No murmur, gallop or regurgitation. ABDOMEN: Soft, nontender. Bowel sounds active. No rigidity. No rebound or guarding. No CVA tenderness. EXTREMITIES: 1+ edema. No clubbing or cyanosis. MUSCULOSKELETAL: No joint swelling. NEUROLOGIC: Awake, alert, oriented times three. No focal deficit. LYMPHATIC: No lymph nodes palpable. SKIN: Intact. LABS: Chest x-ray does show bibasilar pneumonia, which has been stable. BUN 56, creatinine 1.56 which is better from yesterday. Glucose 148, sodium 145. Potassium 5.1. White count 11.04, hemoglobin 11.8. ASSESSMENT: 1. ACUTE ON CHRONIC RENAL FAILURE 2. COPD EXACERBATION SECONDARY TO BIBASILAR PNEUMONIA 3. CAD 4. CHF 5. PERMANENT PACEMAKER 6. HISTORY OF CORONARY ARTERY DISEASE 7. AICD PLACEMENT 8. CHRONIC KIDNEY DISEASE PLAN: 1. Out of bed to chair 2. Activity as tolerated 3. Continue Lovenox for DVT prophylaxis 4. Will change IV Solu-Medrol to p.o. Prednisone 10 mg twice a day 5. Azithromycin p.o. TIME SPENT: More than 35 minutes MTDD
--- NOTE | 2017-08-21 14:48 | PN ---
DATE OF SERVICE: 08/19/17 SUBJECTIVE: The patient is treated with COPD exacerbation, dehydration and pneumonia. She went into acute and chronic renal failure. BUN and creatinine is getting better. The patient was able to walk in the corridor with the patient's daughter. She feels a lot better. REVIEW OF SYSTEMS: CONSTITUTIONAL: No fever, no chills. HEENT: Normal. ENDOCRINE: No weight gain, no weight loss. CVS: No angina symptoms. No CHF symptoms. No palpitations. No atypical chest pain for CAD. No shortness of breath. No PND, no orthopnea. RESPIRATORY: No cough, no hemoptysis. GI: No nausea, no vomiting. No abdominal pain. : No hematuria. No polyuria. MUSCULOSKELETAL: No joint swelling. PSYCHIATRIC: Not anxious. No depression. No suicidal thoughts. No homicidal thoughts. SKIN: Intact. No rash. PHYSICAL EXAMINATION: V/S: BP 148/73, respiratory rate 18, heart rate 62, temperature 97.4, saturation 94%. HEENT: Normocephalic, atraumatic. Mucosa dry. Pallor positive. Very hard of hearing. NECK: Supple. No JVD, no carotid bruit. No lymphadenopathy. LUNGS: Decreased with basilar crackles. No rales or rhonchi. HEART: S1, S2 normal. No S3. No murmur, gallop or regurgitation. ABDOMEN: Soft, nontender. Bowel sounds active. No rigidity. No rebound or guarding. No CVA tenderness. EXTREMITIES: 1+ edema. No clubbing or cyanosis. MUSCULOSKELETAL: No joint swelling. NEUROLOGIC: Awake, alert, oriented times three. No focal deficit. LYMPHATIC: No lymph nodes palpable. SKIN: Intact. LABS: Sodium 147, potassium 4.5, chloride 112, bicarb 26, BUN 48, creatinine 1.45, glucose 106. White count 10.09, hemoglobin 11.2, hematocrit 35.8, platelet count 159. ASSESSMENT: 1. STATUS POST ACUTE RENAL FAILURE 2. COPD EXACERBATION AND PNEUMONIA 3. ANEMIA 4. CAD 5. CHF 6. ANGINA PLAN: 1. Continue Rocephin 2. Continue IV fluids 3. Daily I & O's 4. Lovenox for the daily prophylaxis TIME SPENT: More than 35 minutes MTDD
[2017-08-22] MEDS: MUCOMYST 20% NEB NEB SCH ×2 (04:33→21:25)
[2017-08-22] MEDS: DUONEB NEB SCH ×4 (04:35→21:25)
[2017-08-22] MEDS: CARDIZEM PO SCH ×3 (04:37→20:34)
[2017-08-22] MEDS: COREG PO SCH ×2 (08:17→17:38)
[2017-08-22] MEDS: PREDNISONE PO SCH ×2 (08:18→17:38)
--- NOTE | 2017-08-22 09:50 | DI ---
EXAM: Two views of the chest. History: Follow-up pneumonia Comparison: Chest radiograph 08/18/2017 Findings: Heart remains enlarged. Pacer device again seen. Atherosclerotic vascular calcifications . No significant interval change in the left greater than right bibasilar lung infiltrates and small bilateral pleural effusions. No pneumothorax. No acute osseous abnormalities. IVC filter. Impression: No significant interval change in the left greater than right bibasilar lung infiltrates and small bilateral pleural effusions. Persistent cardiomegaly.
[2017-08-22] MEDS: PLAVIX PO SCH (09:54)
[2017-08-22] MEDS: LIPITOR PO SCH (09:54)
[2017-08-22] MEDS: MUCINEX PO SCH ×2 (09:55→20:34)
[2017-08-22] MEDS: LOVENOX SUBCUT SCH (09:56)
[2017-08-22] MEDS: LOTRIMIN TP SCH ×2 (09:57→20:34)
[2017-08-22] MEDS: NON-FORMULARY MEDICATION (Calcitriol [Calcitriol] 0.25 MCG) PO SCH (09:58)
[2017-08-22] MEDS: TERIPARATIDE SQ SCH (10:00)
--- NOTE | 2017-08-22 10:18 | US ---
EXAM: Right upper extremity venous Doppler History: Right upper extremity pain. Technique: Multiple sonographic images through the right upper extremity were obtained. Color duple x Doppler was used to interrogate vascular flow. Findings: The right jugular, subclavian, axillary, brachial, cephalic, basilic, radial and ulnar vei ns demonstrate spontaneous flow with normal compression and normal augmentation. Impression: No sonographic evidence for deep venous thrombosis.
[2017-08-22] MEDS ORDERED: KAYEXALATE SUSP PO STA (11:56)
[2017-08-23] MEDS: CARDIZEM PO SCH ×3 (04:19→21:07)
[2017-08-23] MEDS: DUONEB NEB SCH ×4 (04:33→21:22)
[2017-08-23] MEDS: MUCOMYST 20% NEB NEB SCH ×2 (04:33→21:20)
[2017-08-23] MEDS ORDERED: LASIX IVP STA (08:23)
[2017-08-23] MEDS: PLAVIX PO SCH (09:00)
[2017-08-23] MEDS: LIPITOR PO SCH (09:01)
[2017-08-23] MEDS: MUCINEX PO SCH ×2 (09:01→21:08)
[2017-08-23] MEDS: COREG PO SCH ×2 (09:01→17:29)
[2017-08-23] MEDS: ZAROXOLYN PO SCH (09:01)
[2017-08-23] MEDS: MIRALAX PO SCH (09:01)
[2017-08-23] MEDS: LOVENOX SUBCUT SCH (09:01)
[2017-08-23] MEDS: PREDNISONE PO SCH ×2 (09:01→17:29)
[2017-08-23] MEDS: LOTRIMIN TP SCH ×2 (09:02→22:25)
[2017-08-23] MEDS: TERIPARATIDE SQ SCH (09:03)
[2017-08-23] MEDS: NON-FORMULARY MEDICATION (Calcitriol [Calcitriol] 0.25 MCG) PO SCH (09:03)
[2017-08-24] MEDS: MUCOMYST 20% NEB NEB SCH ×2 (04:28→20:34)
[2017-08-24] MEDS: DUONEB NEB SCH ×4 (04:28→20:34)
[2017-08-24] MEDS: CARDIZEM PO SCH ×3 (05:19→20:11)
[2017-08-24] MEDS: LOVENOX SUBCUT SCH (08:19)
[2017-08-24] MEDS: LOTRIMIN TP SCH ×2 (08:20→20:11)
[2017-08-24] MEDS: LIPITOR PO SCH (08:20)
[2017-08-24] MEDS: PLAVIX PO SCH (08:20)
[2017-08-24] MEDS: COREG PO SCH ×2 (08:20→17:29)
[2017-08-24] MEDS: PREDNISONE PO SCH ×2 (08:20→17:29)
[2017-08-24] MEDS: MUCINEX PO SCH ×2 (08:20→20:11)
[2017-08-24] MEDS: TERIPARATIDE SQ SCH (08:21)
[2017-08-24] MEDS: NON-FORMULARY MEDICATION (Calcitriol [Calcitriol] 0.25 MCG) PO SCH (08:21)
[2017-08-24] MEDS ORDERED: LASIX IVP STA (09:04)
[2017-08-24] MEDS: PROTONIX PO SCH (11:19)
--- NOTE | 2017-08-24 15:24 | PN ---
DATE OF SERVICE: 08/21/17 SUBJECTIVE: The patient more up and about and walking. Right upper extremity has swelling and leg edema more today. Shortness of breath with exertion but she was able to walk. Still has some cough but not able to bring any phlegm. REVIEW OF SYSTEMS: CONSTITUTIONAL: No fever, no chills. HEENT: Normal. ENDOCRINE: No weight gain, no weight loss. CVS: No angina symptoms. No CHF symptoms. No palpitations. No atypical chest pain for CAD. No shortness of breath. No PND, no orthopnea. RESPIRATORY: No cough, no hemoptysis. GI: No nausea, no vomiting. No abdominal pain. : No hematuria. No polyuria. MUSCULOSKELETAL: No joint swelling. PSYCHIATRIC: Not anxious. No depression. No suicidal thoughts. No homicidal thoughts. SKIN: Intact. No rash. PHYSICAL EXAMINATION: V/S: Blood pressure 155/75, respiratory rate 24, heart rate 69, temperature 97.6 and saturation 96% on 2 liters. HEENT: Normocephalic, atraumatic. Mucosa dry. Pallor positive. No icterus. NECK: Supple. No JVD, no carotid bruit. No lymphadenopathy. LUNGS: Basilar crackles. Clear to auscultation. No rales or rhonchi. HEART: S1, S2 normal. No S3. No murmur, gallop or regurgitation. ABDOMEN: Soft, nontender. Bowel sounds active. No rigidity. No rebound or guarding. No CVA tenderness. EXTREMITIES: No clubbing, cyanosis. 1+ edema. MUSCULOSKELETAL: No joint swelling. NEUROLOGIC: Awake, alert, oriented times three. No focal deficit. LYMPHATIC: No lymph nodes palpable. SKIN: Intact. LABS: WBC 10.51, hgb 10.7, hct 34.4, plt count 130, sodium 142, potassium 5.6, chloride 111, bicarb 27, BUN 39, creatinine 1.32 and glucose 118. ASSESSMENT: 1. Status post acute renal failure 2. COPD Exacerbation secondary to the pneumonia and bronchitis 3. Acute on chronic CHF 4. CAD status post stent 5. Dependant edema 6. Anemia 7. Defibrillator PLAN: 1. Continue the DUO NEBS 2. Will add Mucinex 3. Continue Plavix and Lovenox 4. Metolazone MONDAY, MONDAY and MONDAY 5. I&O's TIME SPENT: More than 35 minutes MTDD
[2017-08-25] MEDS: DUONEB NEB SCH ×4 (04:23→21:20)
[2017-08-25] MEDS: MUCOMYST 20% NEB NEB SCH (04:26)
[2017-08-25] MEDS: PROTONIX PO SCH (05:38)
[2017-08-25] MEDS: CARDIZEM PO SCH ×3 (05:38→20:46)
[2017-08-25] MEDS: MIRALAX PO SCH (08:33)
[2017-08-25] MEDS: PLAVIX PO SCH (08:33)
[2017-08-25] MEDS: LOVENOX SUBCUT SCH (08:33)
[2017-08-25] MEDS: NON-FORMULARY MEDICATION (Calcitriol [Calcitriol] 0.25 MCG) PO SCH (08:34)
[2017-08-25] MEDS: TERIPARATIDE SQ SCH (08:34)
[2017-08-25] MEDS: MUCINEX PO SCH ×2 (08:34→20:46)
[2017-08-25] MEDS: LIPITOR PO SCH (08:34)
[2017-08-25] MEDS: LOTRIMIN TP SCH ×2 (08:34→20:46)
[2017-08-25] MEDS: ZAROXOLYN PO SCH (08:34)
[2017-08-25] MEDS: COREG PO SCH ×2 (08:34→16:55)
[2017-08-25] MEDS: PREDNISONE PO SCH ×2 (08:34→16:55)
--- NOTE | 2017-08-25 10:12 | DI ---
EXAM: CHEST FRONTAL AND LATERAL VIEWS HISTORY: Pneumonia. COMPARISON: 08/22/2017 FINDINGS: Stable cardiomegaly. Moderate atherosclerotic disease. Stable right-sided pacemaker unit . Interstitial thickening and patchy density in the bases more noticeable on the left without change since prior study. No visible pleural fluid or nabil active congestive heart failure. IMPRESSION: Persistent bibasilar densities without noticeable change can be consistent with atelectasis and fibro sis. Superimposed pneumonia cannot be excluded and clinical correlation is recommended.
[2017-08-25] MEDS: PERFOROMIST NEB SCH (17:13)
[2017-08-25] MEDS ORDERED: XOPENEX 1.25 MG NEB STA (19:08)
[2017-08-25] MEDS ORDERED: ALBUTEROL 0.083% NEB NEB PRN (19:26)
[2017-08-25] MEDS ORDERED: LASIX IVP STA (19:56)
[2017-08-25] MEDS ORDERED: MORPHINE 2 MG/ML SYRINGE IVP STA (19:56)
[2017-08-26] MEDS: DUONEB NEB SCH ×4 (05:07→19:14)
[2017-08-26] MEDS: PERFOROMIST NEB SCH ×2 (05:39→19:24)
[2017-08-26] MEDS: CARDIZEM PO SCH ×3 (06:24→22:23)
[2017-08-26] MEDS: PROTONIX PO SCH (06:24)
[2017-08-26] MEDS: COREG PO SCH ×2 (08:12→16:45)
[2017-08-26] MEDS: PREDNISONE PO SCH (08:14)
[2017-08-26] MEDS: PLAVIX PO SCH (09:15)
[2017-08-26] MEDS: MUCINEX PO SCH ×2 (09:15→22:23)
[2017-08-26] MEDS: LIPITOR PO SCH (09:15)
[2017-08-26] MEDS: LOVENOX SUBCUT SCH (09:15)
[2017-08-26] MEDS: NON-FORMULARY MEDICATION (Calcitriol [Calcitriol] 0.25 MCG) PO SCH (09:23)
[2017-08-26] MEDS: TERIPARATIDE SQ SCH (09:24)
[2017-08-26] MEDS: LOTRIMIN TP SCH ×2 (09:29→22:23)
[2017-08-26] MEDS ORDERED: VANCOMYCIN 1,000 MG in SODIUM CHLORIDE 200 ML IV SCH (14:30)
--- NOTE | 2017-08-26 14:52 | DI ---
EXAM: Single view chest COMPARISON: Chest Xray from 08/25/2017 HISTORY: Short of breath FINDINGS: There is increasing infiltrate in the left lower lobe compared to earlier. There is modes t vascular congestion. There are also some increased lung markings in the right medial base. Cardia c and mediastinal silhouettes show no acute abnormality. Pacemaker is unchanged. There is cardiomega ly. There is calcific atherosclerosis of the aorta. No acute soft tissue or osseous abnormalities. IMPRESSION: 1. Increasing bibasilar infiltrates.
[2017-08-26] MEDS ORDERED: ROCEPHIN ONE (15:13)
[2017-08-26] MEDS: SOLU-MEDROL 125 MG IVP SCH ×2 (15:26→22:23)
[2017-08-26] MEDS ORDERED: SODIUM CHLORIDE 50 ML IV ONE (15:32)
[2017-08-26] MEDS: ROCEPHIN 1 GM in SODIUM CHLORIDE 50 ML IV SCH (15:32)
[2017-08-26] MEDS: LASIX IVP PRN (23:49)
[2017-08-27] MEDS: CARDIZEM PO SCH ×3 (05:55→21:21)
[2017-08-27] MEDS: PROTONIX PO SCH (05:55)
[2017-08-27] MEDS: DUONEB NEB SCH ×4 (05:58→23:08)
[2017-08-27] MEDS: PERFOROMIST NEB SCH ×2 (06:28→17:44)
[2017-08-27] MEDS: COREG PO SCH ×2 (08:07→17:13)
[2017-08-27] MEDS: SOLU-MEDROL 125 MG IVP SCH ×2 (08:45→21:21)
[2017-08-27] MEDS: ROCEPHIN 1 GM in SODIUM CHLORIDE 50 ML IV SCH (09:03)
[2017-08-27] MEDS: TERIPARATIDE SQ SCH (09:24)
[2017-08-27] MEDS: MUCINEX PO SCH ×2 (09:25→21:21)
[2017-08-27] MEDS: PLAVIX PO SCH (09:25)
[2017-08-27] MEDS: LOVENOX SUBCUT SCH (09:26)
[2017-08-27] MEDS: NON-FORMULARY MEDICATION (Calcitriol [Calcitriol] 0.25 MCG) PO SCH (09:31)
[2017-08-27] MEDS: MIRALAX PO SCH (09:34)
[2017-08-27] MEDS: LIPITOR PO SCH (09:36)
[2017-08-27] MEDS: LOTRIMIN TP SCH ×2 (09:39→21:22)
[2017-08-27] MEDS: VANCOMYCIN 500 MG in SODIUM CHLORIDE 100 ML IV SCH (10:00)
[2017-08-27] MEDS ORDERED: CITRATE OF MAGNESIA PO STA ×2 (15:57→20:49)
[2017-08-27] MEDS: LASIX IVP PRN (21:17)
[2017-08-28] MEDS: DUONEB NEB SCH ×2 (04:39→10:12)
[2017-08-28] MEDS: PERFOROMIST NEB SCH (05:10)
[2017-08-28] MEDS: CARDIZEM PO SCH ×2 (05:29→12:53)
[2017-08-28] MEDS: PROTONIX PO SCH (05:30)
[2017-08-28 06:15] VITALS: TEMP 97.4
[2017-08-28] MEDS ORDERED: TESSALON PERLES PO PRN (08:31)
[2017-08-28] MEDS: ZAROXOLYN PO SCH (08:49)
[2017-08-28] MEDS: COREG PO SCH (08:49)
[2017-08-28] MEDS: ROCEPHIN 1 GM in SODIUM CHLORIDE 50 ML IV SCH (08:49)
[2017-08-28] MEDS: PLAVIX PO SCH (08:49)
[2017-08-28] MEDS: LOVENOX SUBCUT SCH (08:49)
[2017-08-28] MEDS: LIPITOR PO SCH (08:49)
[2017-08-28] MEDS: MUCINEX PO SCH (08:49)
[2017-08-28] MEDS: SOLU-MEDROL 125 MG IVP SCH (08:50)
[2017-08-28] MEDS: LOTRIMIN TP SCH (08:51)
[2017-08-28] MEDS: TERIPARATIDE SQ SCH (08:51)
[2017-08-28] MEDS: NON-FORMULARY MEDICATION (Calcitriol [Calcitriol] 0.25 MCG) PO SCH (08:51)
[2017-08-28] MEDS: VANCOMYCIN 500 MG in SODIUM CHLORIDE 100 ML IV SCH (09:56)
[2017-08-28 10:00] VITALS: BP 91/57
--- NOTE | 2017-08-28 13:06 | PN ---
DATE OF SERVICE: 08/23/17 SUBJECTIVE: Shortness of breath is worse today. The patient says the swelling in the lower extremity is so bad that she is having difficulty in flexing the knees. Right upper extremity swelling. Venous Doppler was done which was negative for clots. REVIEW OF SYSTEMS: CONSTITUTIONAL: No fever, no chills. HEENT: Normal. ENDOCRINE: No weight gain, no weight loss. CVS: No angina symptoms. No CHF symptoms. No palpitations. No atypical chest pain for CAD. No shortness of breath. No PND, no orthopnea. RESPIRATORY: No cough, no hemoptysis. GI: No nausea, no vomiting. No abdominal pain. : No hematuria. No polyuria. MUSCULOSKELETAL: No joint swelling. PSYCHIATRIC: Not anxious. No depression. No suicidal thoughts. No homicidal thoughts. SKIN: Intact. No rash. PHYSICAL EXAMINATION: V/S: BP 146/75, respiratory rate 20, heart rate 72, temperature 97.8, saturation 95 on 2L. HEENT: Normocephalic, atraumatic. Mucosa dry, pallor positive. No icterus. NECK: Supple. No JVD, no carotid bruit. No lymphadenopathy. LUNGS: Basilar crackles. No rales or rhonchi. HEART: S1, S2 normal. No S3. No murmur, gallop or regurgitation. ABDOMEN: Soft, nontender. Anasarca. Bowel sounds active. No rigidity. No rebound or guarding. No CVA tenderness. EXTREMITIES: Lower extremity 2+ to 3+ leg edema. Right upper extremity leg edema present. No clubbing or cyanosis. MUSCULOSKELETAL: No joint swelling. NEUROLOGIC: Awake, alert, oriented times three. No focal deficit. LYMPHATIC: No lymph nodes palpable. SKIN: Intact. LABS: Sodium 142, potassium 5.3, chloride 107, bicarb 31, BUN 32, creatinine 1.27, glucose 117. White count 13.58, hemoglobin 10.7, hematocrit 34.6, platelet count 102. ASSESSMENT: 1. WORSENING LEG EDEMA WITH ANASARCA 2. HYPERKALEMIA 3. STATUS POST ACUTE ON CHRONIC RENAL FAILURE 4. FLUID OVERLOAD 5. CAD 6. CHF PLAN: 1. Lasix 40 mg IV push 2. Continue Lovenos for DVT prophylaxis 3. Duonebs 4. Prednisone 10 mg p.o. b.i.d. TIME SPENT: More than 35 minutes MTDD
--- NOTE | 2017-08-28 13:16 | PN ---
DATE OF SERVICE: 08/25/17 SUBJECTIVE: Admitting initially with COPD exacerbation, pneumonia but stay was complicated with acute on chronic renal failure and fluid overload. Now BUN and creatinine is much improved 31 and 1.30 but still patient has almost 10 lbs of weight gain. We were able to get rid of 17 lbs in the last two days by giving Lasix IV push 40 mg. The patient still has exertional shortness of breath and she is short of breath while talking to us. REVIEW OF SYSTEMS: CONSTITUTIONAL: No fever, no chills. HEENT: Normal. ENDOCRINE: No weight gain, no weight loss. CVS: No angina symptoms. No CHF symptoms. No palpitations. No atypical chest pain for CAD. No shortness of breath. Positive for PND and orthopnea. RESPIRATORY: No cough, no hemoptysis. GI: No nausea, no vomiting. No abdominal pain. : No hematuria. No polyuria. MUSCULOSKELETAL: No joint swelling. PSYCHIATRIC: Not anxious. No depression. No suicidal thoughts. No homicidal thoughts. SKIN: Intact. No rash. PHYSICAL EXAMINATION: V/S: BP 155/72, respiratory rate 18, heart rate 61, temperature 97.6. Saturation 96 on 2L. HEENT: Normocephalic, atraumatic. Mucosa dry. Pallor positive. NECK: Decreased basilar crackles. Supple. No JVD, no carotid bruit. No lymphadenopathy. LUNGS: Clear to auscultation. No rales or rhonchi. HEART: S1, S2 normal. No S3. No murmur, gallop or regurgitation. ABDOMEN: Soft, nontender. Bowel sounds active. No rigidity. No rebound or guarding. No CVA tenderness. EXTREMITIES: No clubbing, cyanosis. 2+ edema. MUSCULOSKELETAL: No joint swelling. NEUROLOGIC: Awake, alert, oriented times three. No focal deficit. LYMPHATIC: No lymph nodes palpable. SKIN: Intact. LABS: White count 11.88, hemoglobin 11.1, hematocrit 34.9, platelet count 99. Sodium 140, potassium 3.4, chloride 95, bicarb 39, BUN 31, creatinine 1.30. ASSESSMENT: 1. ACUTE ON CHRONIC RENAL FAILURE 2. ACUTE ON CHRONIC HEART FAILURE 3. FLUID OVERLOAD WITH DEPENDENT EDEMA 4. STATUS POST HYPERKALEMIA 5. COPD EXACERBATION STATUS POST PNEUMONIA PLAN: 1. Zaroxolyn today 2. Prednisone 10 mg b.i.d. 3. Duonebs 4. Will start the Puffer Mist 5. Daily I & O's If the patient continues to improve, by tomorrow, most probably will plan to discharge home. TIME SPENT: More than 35 minutes MTDD
--- NOTE | 2017-08-28 13:25 | PN ---
DATE OF SERVICE: 08/26/17 SUBJECTIVE: The patient got decompensated yesterday night. She went to the bathroom, came back and was short of breath. ABGs were done which showed pH 7.385, pc02 65.8, p02 52. The patient was put no nonrebreather and ABGs from today morning showed p02 went up to 80, pc02 77.4. Still short of breath with cough and congestion. No fever or chills. REVIEW OF SYSTEMS: CONSTITUTIONAL: No fever, no chills. HEENT: Normal. ENDOCRINE: No weight gain, no weight loss. CVS: No angina symptoms. No CHF symptoms. No palpitations. No atypical chest pain for CAD. Positive for Shortness of breath. No PND, no orthopnea. RESPIRATORY: Cough and congestion. No hemoptysis. GI: No nausea, no vomiting. No abdominal pain. : No hematuria. No polyuria. MUSCULOSKELETAL: No joint swelling. PSYCHIATRIC: Not anxious. No depression. No suicidal thoughts. No homicidal thoughts. SKIN: Intact. No rash. PHYSICAL EXAMINATION: V/S: BP 120/67, respiratory rate 30, heart rate 62, temperature 97.3. Saturation 94% on 35% Venturi Mask. HEENT: Normocephalic, atraumatic. Mucosa dry. Pallor positive. No icterus. NECK: Supple. No JVD, no carotid bruit. No lymphadenopathy. LUNGS: Decreased with basilar crackles. Mild expiratory wheeze. No rales or rhonchi. HEART: S1, S2 normal. No S3. No murmur, gallop or regurgitation. ABDOMEN: Soft, nontender. Bowel sounds active. No rigidity. No rebound or guarding. No CVA tenderness. EXTREMITIES: 2+ leg edema. No clubbing or cyanosis. MUSCULOSKELETAL: No joint swelling. NEUROLOGIC: Groggy, arouable. No focal deficit. LYMPHATIC: No lymph nodes palpable. SKIN: Intact. LABS: Sodium 140, potassium 4.3, chloride 93, bicarb 31, BUN 32, creatinine 1.35. White count 10.54, hemoglobin 11.0, hematocrit 35.7, platelet count 96. ASSESSMENT: 1. Acute on chronic heart failure. 2. Hypercapneic respiratory failure mostly from the pneumonia. 3. Worsening dependent edema. 4. Acute on chronic heart failure. 5. Chronic kidney disease. 6. Status post hyperkalemia. PLAN: 1. Will start the patient on Rocephin 1 gm daily, Vancomycin 1 gm daily. 2. Chest x-ray. 3. Will get ABG. 4. Will follow with the patient in daily rounds. TIME SPENT: More than 35 minutes MTDD
--- NOTE | 2017-08-28 13:33 | PN ---
DATE OF SERVICE: 08/27/17 SUBJECTIVE: The patient is in acute distress with respiratory problem, COPD exacerbation with c02 narcosis. Pc02 went up to 76 and 77. She was using the BIPAP but she was not able to tolerate. Right now the Venturi mask maintaining saturations around 84 to 96. REVIEW OF SYSTEMS: CONSTITUTIONAL: No fever, no chills. HEENT: Normal. ENDOCRINE: No weight gain, no weight loss. CVS: No angina symptoms. No CHF symptoms. No palpitations. No atypical chest pain for CAD. No shortness of breath. No PND, no orthopnea. RESPIRATORY: No cough, no hemoptysis. GI: No nausea, no vomiting. No abdominal pain. : No hematuria. No polyuria. MUSCULOSKELETAL: No joint swelling. PSYCHIATRIC: Not anxious. No depression. No suicidal thoughts. No homicidal thoughts. SKIN: Intact. No rash. PHYSICAL EXAMINATION: V/S: BP 118/64, respiratory rate 24, heart rate 60, temperature 97.2, respiratory rate 24. HEENT: Normocephalic, atraumatic. Mucosa dry, pallor positive. No icterus. NECK: Supple. No JVD, no carotid bruit. No lymphadenopathy. LUNGS: Basilar crackles. Mild expiratory wheeze. Clear to auscultation. No rales or rhonchi. HEART: S1, S2 normal. No S3. No murmur, gallop or regurgitation. ABDOMEN: Soft, nontender. Bowel sounds active. No rigidity. No rebound or guarding. No CVA tenderness. EXTREMITIES: Edema 2+. No clubbing or cyanosis. MUSCULOSKELETAL: No joint swelling. NEUROLOGIC: Awake, alert, oriented times three. No focal deficit. LYMPHATIC: No lymph nodes palpable. SKIN: Intact. LABS: White count 10.54, hemoglobin 11.0, hematocrit 35.7, platelet count 96. Sodium 140, potassium 4.4, chloride 93, bicarb 41, BUN 42, creatinine 1.35. ASSESSMENT: 1. COPD EXACERBATION SECONDARY TO PNEUMONIA 2. INCREASING BILATERAL PNEUMONIA 3. C02 NARCOSIS 4. ACUTE ON CHRONIC RENAL FAILURE 5. HYPERKALEMIA WHICH IS BETTER 6. CAD 7. CHF 8. DEPENDENT EDEMA PLAN: 1. Continue Rocephin, Vancomycin 2. Solu-Medrol 80 q.12 3. Daily I & O TIME SPENT: More than 35 minutes Poor prognosis has been discussed with the patient's daughter, who is the power of claim attorney. She verbalized understanding. NATHALIE
--- NOTE | 2017-08-28 14:06 | PN ---
DATE OF SERVICE: 08/17/17 SUBJECTIVE: The patient is more awake and alert, still was able to get out and walk to the bathroom, gets short of breath. BUN and creatinine is somewhat better 64 from 72 and 1.75 creatinine. Output is not decreased. Some coughing. REVIEW OF SYSTEMS: CONSTITUTIONAL: No fever, no chills. HEENT: Normal. ENDOCRINE: No weight gain, no weight loss. CVS: No angina symptoms. No CHF symptoms. No palpitations. No atypical chest pain for CAD. Positive for shortness of breath. No PND, no orthopnea. RESPIRATORY: Cough. No hemoptysis. GI: No nausea, no vomiting. No abdominal pain. : No hematuria. No polyuria. MUSCULOSKELETAL: No joint swelling. PSYCHIATRIC: Not anxious. No depression. No suicidal thoughts. No homicidal thoughts. SKIN: Intact. No rash. PHYSICAL EXAMINATION: V/S: BP 130/75, respiratory rate 24, heart rate 61, temperature 97.5, saturation 95. HEENT: Normocephalic, atraumatic. Mucosa dry. Pallor positive. No icterus. NECK: Supple. No JVD, no carotid bruit. No lymphadenopathy. LUNGS: Decreased basilar crackles. No rales or rhonchi. HEART: S1, S2 normal. No S3. No murmur, gallop or regurgitation. ABDOMEN: Soft, nontender. Bowel sounds active. No rigidity. No rebound or guarding. No CVA tenderness. EXTREMITIES: 1+ edema. No clubbing or cyanosis. MUSCULOSKELETAL: No joint swelling. NEUROLOGIC: Awake, alert, oriented times three. No focal deficit. LYMPHATIC: No lymph nodes palpable. SKIN: Intact. LABS: Sodium 142, potassium 5.1, chloride 111, bicarb 28, BUN 64, creatinine 1.75, glucose 155. White count 11.04, hemoglobin 11.8, hematocrit 36.9, platelet count 200. ASSESSMENT: 1. ACUTE ON CHRONIC RENAL FAILURE 2. COPD EXACERBATION SECONDARY TO BRONCHITIS AND PNEUMONIA 3. CAD 4. CHF 5. ANASARCA PLAN: 1. Continue IV fluids 2. Azithromycin, Atorvastatin 3. Lovenox for DVT prophylaxis 4. Duonebs 5. Daily I & O's TIME SPENT: More than 35 minutes MTDD
--- NOTE | 2017-08-28 14:19 | PN ---
DATE OF SERVICE: 08/24/17 SUBJECTIVE: The patient's leg edema is better. The patient was given Lasix 20 mg today. She still has leg edema with some shortness of breath with exertion. No fever or chills. REVIEW OF SYSTEMS: CONSTITUTIONAL: No fever, no chills. HEENT: Normal. ENDOCRINE: No weight gain, no weight loss. CVS: No angina symptoms. No CHF symptoms. No palpitations. No atypical chest pain for CAD. Positive for shortness of breath with exertion. No PND, no orthopnea. RESPIRATORY: No cough, no hemoptysis. GI: No nausea, no vomiting. No abdominal pain. : No hematuria. No polyuria. MUSCULOSKELETAL: No joint swelling. PSYCHIATRIC: Not anxious. No depression. No suicidal thoughts. No homicidal thoughts. SKIN: Intact. No rash. PHYSICAL EXAMINATION: V/S: BP 151/69, respiratory rate 24, heart rate 62, temperature 97.6, saturation 100. HEENT: Normocephalic, atraumatic. Mucosa dry. Pallor positive. No icterus. NECK: Supple. No JVD, no carotid bruit. No lymphadenopathy. LUNGS: Basilar crackles. Clear to auscultation. No rales or rhonchi. HEART: S1, S2 normal. No S3. No murmur, gallop or regurgitation. ABDOMEN: Soft, nontender. Bowel sounds active. No rigidity. No rebound or guarding. No CVA tenderness. EXTREMITIES: 2+ edema. No clubbing, cyanosis. MUSCULOSKELETAL: No joint swelling. NEUROLOGIC: Awake, alert, oriented times three. No focal deficit. LYMPHATIC: No lymph nodes palpable. SKIN: Intact. LABS: White count 13.72, hemoglobin 10.9, hematocrit 34.9, platelet count 102. Sodium 143, potassium 4.6, chloride 99, bicarb 27, BUN 30, creatinine 1.32, glucose 117. ASSESSMENT: 1. ACUTE ON CHRONIC RENAL FAILURE 2. STATUS POST HYPERKALEMIA 3. COPD EXACERBATION SECONDARY TO PNEUMONIA 4. CAD 5. CHF 6. ANEMIA 7. HISTORY OF RI 8. CORONARY ARTERY DISEASE STATUS POST STENTS PLAN: 1. Will give Lasix 20 mg IV push again today 2. Lovenox 3. Mucinex 4. Duonebs TIME SPENT: More than 35 minutes MTDD
--- NOTE | 2017-08-31 08:09 | PN ---
DATE OF SERVICE: 08/28/17 SUBJECTIVE: The patient is still having the cough and congestion and found to have pneumonia new infiltration, short of breath. Over the weekend the patient had difficulty with the hypercapnic respiratory failure with CPAP and BIPAP. The patient is feeling better now. REVIEW OF SYSTEMS: CONSTITUTIONAL: No fever, no chills. HEENT: Normal. ENDOCRINE: No weight gain, no weight loss. CVS: No angina symptoms. No CHF symptoms. No palpitations. No atypical chest pain for CAD. Shortness of breath. No PND, no orthopnea. RESPIRATORY: cough, no hemoptysis. GI: No nausea, no vomiting. No abdominal pain. : No hematuria. No polyuria. MUSCULOSKELETAL: No joint swelling. PSYCHIATRIC: Not anxious. No depression. No suicidal thoughts. No homicidal thoughts. SKIN: Intact. No rash. Leg edema. PHYSICAL EXAMINATION: V/S: Blood pressure 91/57, respiratory rate 32, heart rate 62, temperature 97.4 with saturation 97% on 3 liters. HEENT: Normocephalic, atraumatic. Mucosa dry. Pallor positive. No icterus. Very hard of hearing. NECK: Supple. No JVD, no carotid bruit. No lymphadenopathy. LUNGS:Decreased with basilar crackles. Mild expiratory wheezing. No rales or rhonchi. HEART: S1, S2 normal. No S3. No murmur, gallop or regurgitation. ABDOMEN: Soft, nontender. Bowel sounds active. No rigidity. No rebound or guarding. No CVA tenderness. EXTREMITIES: 2+ edema. No clubbing or cyanosis MUSCULOSKELETAL: No joint swelling. NEUROLOGIC: Awake, alert, oriented times three. No focal deficit. LYMPHATIC: No lymph nodes palpable. SKIN: Intact. LABS: WBC 9.74, hgb 10.5, hct 33.5, plt count 99, sodium 142, potassium 4.8, chloride 90, bicarb 46, BUN 52, creatinine 1.52 and glucose 134. ASSESSMENT: 1. COPD exacerbation secondary to the pneumonia 2. Bibasilar pneumonia 3. CO2 Narcosis 4. Acute on chronic heart failure 5. Dependant edema 6. Acute one chronic renal failure 7. Anemia 8. Hypotension 9. Dyslipidemia 10. CAD 11. CHF PLAN: 1. Transitional care unit for continuing IV antibiotics and breathing treatments 2. Daily I&O's 3. Continue Lasix PRN 4. Solu-Medrol 80mg Q 12 hours TIME SPENT: More than 35 minutes MTDD
--- NOTE | 2017-09-01 14:35 | PN ---
DATE OF SERVICE: 08/22/17 SUBJECTIVE: The patient still has the right upper extremity swelling and there is some pain. Walking good. Shortness of breath with walking and rest makes it better. Leg edema is present. Potassium 5.7. No constipation or diarrhea. REVIEW OF SYSTEMS: CONSTITUTIONAL: No fever, no chills. HEENT: Normal. ENDOCRINE: No weight gain, no weight loss. CVS: No angina symptoms. No CHF symptoms. No palpitations. No atypical chest pain for CAD. No shortness of breath. No PND, no orthopnea. RESPIRATORY: No cough, no hemoptysis. GI: No nausea, no vomiting. No abdominal pain. : No hematuria. No polyuria. MUSCULOSKELETAL: No joint swelling. PSYCHIATRIC: Not anxious. No depression. No suicidal thoughts. No homicidal thoughts. SKIN: Intact. No rash. PHYSICAL EXAMINATION: V/S: Blood pressure 147/90, respiratory rate 20, heart rate 76, temperature 97.5 , saturation 97. HEENT: Normocephalic, atraumatic. Mucosa dry. Pallor positive. No icterus NECK: Supple. No JVD, no carotid bruit. No lymphadenopathy. LUNGS: Basilar crackles. No rales or rhonchi. HEART: S1, S2 normal. No S3. No murmur, gallop or regurgitation. ABDOMEN: Soft, nontender. Bowel sounds active. No rigidity. No rebound or guarding. No CVA tenderness. EXTREMITIES: 1+ edema. No clubbing or cyanosis MUSCULOSKELETAL: Right upper extremity swelling and tenderness is present. We will get a venous Doppler. NEUROLOGIC: Awake, alert, oriented times three. No focal deficit. LYMPHATIC: No lymph nodes palpable. SKIN: Intact. LABS: White count 11.93, hemoglobin 10.8, hematocrit 34.2, platelet count 100, sodium 142, potassium 5.7, chloride 108, bicarb 30, BUN 34, creatinine 1.19. ASSESSMENT: 1. HYPERKALEMIA 2. STATUS POST ACUTE RENAL FAILURE 3. CORONARY ARTERY DISEASE 4. CONGESTIVE HEART FAILURE 5. STATUS POST STENT PLACEMENT 6. FLUID OVERLOAD 7. CHRONIC KIDNEY DISEASE PLAN: 1. Kayexalate 30. 2. Lovenox for the DVT prophylaxis. 3. DuoNebs. TIME SPENT: More than 35 minutes MTDD
--- NOTE | 2017-09-22 07:54 | PN ---
DATE OF SERVICE: 08/15/17 SUBJECTIVE: The patient was admitted with pneumonia and COPD exacerbation. Right now the patient is getting complicated with the acute on chronic renal failure. BUN 70 and creatinine 1.92. Still gets short of breath with minimal exertion. REVIEW OF SYSTEMS: CONSTITUTIONAL: No fever, no chills. Just feels cold all over. HEENT: Normal. ENDOCRINE: No weight gain, no weight loss. CVS: No angina symptoms. No CHF symptoms. No palpitations. No atypical chest pain for CAD. No shortness of breath. No PND, no orthopnea. RESPIRATORY: No cough, no hemoptysis. GI: No nausea, no vomiting. No abdominal pain. : No hematuria. No polyuria. MUSCULOSKELETAL: No joint swelling. PSYCHIATRIC: Not anxious. No depression. No suicidal thoughts. No homicidal thoughts. SKIN: Intact. No rash. PHYSICAL EXAMINATION: V/S: Blood pressure 138/76, respiratory rate 20, heart rate 62, temperature 97.8 with saturation 98%. HEENT: Normocephalic, atraumatic. Mucosa dry. Pallor positive. No icterus. NECK: Supple. No JVD, no carotid bruit. No lymphadenopathy. LUNGS: Decreased and basilar crackles. Clear to auscultation. No rales or rhonchi. HEART: S1, S2 normal. No S3. No murmur, gallop or regurgitation. ABDOMEN: Soft, nontender. Bowel sounds active. No rigidity. No rebound or guarding. No CVA tenderness. EXTREMITIES: 2+ edema. No clubbing or cyanosis MUSCULOSKELETAL: No joint swelling. NEUROLOGIC: Awake and alert. No focal deficit. LYMPHATIC: No lymph nodes palpable. SKIN: Intact. LABS: WBC 9.38, hgb 11.9, hct 38.6, plt count 151, sodium 136, potassium 5.6, chloride 105, bicarb 21, BUN 70, creatinine 1.92, glucose 106. ASSESSMENT: 1. Community acquired pneumonia 2. COPD exacerbation secondary to the community acquired pneumonia 3. Acute on chronic heart failure 4. Acute on chronic renal failure 5. Respiratory failure 6. Dyslipidemia 7. Coronary artery disease 8. Permanent pacemaker 9. Osteoarthritis PLAN: 1. Will do CMP today 2. Continue Lovenox 3. Rocephin 1 gram daily 4. DUO NEBS 5. Steroids Q 12 hours 6. Daily I&O's TIME SPENT: More than 35 minutes NATHALIE
== END 2017-08-28 12:53 | disposition swing bed (61) | DRG 194 ==
LOC: ED 16:20 → MEDSURG A 19:53
PROVIDERS: ADMIT Emergency Medicine; ATTEND Emergency Medicine
DX: J18.9 Pneumonia, unspecified organism (principal); J44.1 Chronic obstructive pulmonary disease with (acute) exacerbation; E87.2 Acidosis; I25.10 Atherosclerotic heart disease of native coronary artery without angina pectoris; I10 Essential (primary) hypertension; I50.9 Heart failure, unspecified; R60.9 Edema, unspecified; M06.9 Rheumatoid arthritis, unspecified; M19.90 Unspecified osteoarthritis, unspecified site; Z95.0 Presence of cardiac pacemaker; Z85.828 Personal history of other malignant neoplasm of skin; H91.90 Unspecified hearing loss, unspecified ear
CPT/HCPCS: 36415; 80048; 80053; 82550; 82803; 83605; 84132; 84145; 84484; 85025; 87040; 87502; 87651; 87880; 93005; 93010; 94640; 94660; 96365; 99223; 99233; 99284

== ENCOUNTER 2017-08-28 12:53 | Inpatient (IN) | payer OTHER ==
[2017-08-28] MEDS ORDERED: ALBUTEROL 0.083% NEB NEB PRN ×2 (13:16)
--- NOTE | 2017-08-28 13:45 | PN ---
DATE OF SERVICE: 08/20/17 SUBJECTIVE: The patient is more active, was able to walk in the corridor again. She got short of breath but rest makes it better. Leg edema is slightly increased today. Still coughing but not able to get phlegm out. REVIEW OF SYSTEMS: CONSTITUTIONAL: No fever, no chills. HEENT: Normal. ENDOCRINE: No weight gain, no weight loss. CVS: No angina symptoms. No CHF symptoms. No palpitations. No atypical chest pain for CAD. Shortness of breath. No PND, no orthopnea. RESPIRATORY: Cough. No hemoptysis. GI: No nausea, no vomiting. No abdominal pain. : No hematuria. No polyuria. MUSCULOSKELETAL: No joint swelling. PSYCHIATRIC: Not anxious. No depression. No suicidal thoughts. No homicidal thoughts. SKIN: Intact. No rash. PHYSICAL EXAMINATION: V/S: BP 129/74, respiratory rate 20, heart rate 69, temperature 96.7, saturation 94 on 2L. HEENT: Normocephalic, atraumatic. Mucosa dry. Pallor positive. NECK: Supple. No JVD, no carotid bruit. No lymphadenopathy. LUNGS: Basilar crackles. Expiratory wheezing. No rales or rhonchi. HEART: S1, S2 normal. No S3. No murmur, gallop or regurgitation. ABDOMEN: Soft, nontender. Bowel sounds active. No rigidity. No rebound or guarding. No CVA tenderness. EXTREMITIES: 2+ edema. No clubbing or cyanosis. MUSCULOSKELETAL: No joint swelling. NEUROLOGIC: Awake, alert, oriented times three. Very hard of hearing. No focal deficit. LYMPHATIC: No lymph nodes palpable. SKIN: Intact. LABS: White count 10.40, hemoglobin 11.0, hematocrit 35.5, platelet count 140. Sodium 145, potassium 4.9, chloride 113, bicarb 26, BUN 43, creatinine 1.33. ASSESSMENT: 1. ACUTE ON CHRONIC RENAL FAILURE 2. COPD EXACERBATION SECONDARY TO PNEUMONIA AND BRONCHITIS 3. PNEUMONIA 4. BIBASILAR CONSOLIDATION 5. ATRIAL FIBRILLATION 6. CAD 7. CHF 8. DEPENDENT EDEMA PLAN: 1. Continue Azithromycin 2. Coreg 3. Lovenox 4. IV fluids at 60 mL/hr 5. Daily I & O's TIME SPENT: More than 35 minutes MTDD
[2017-08-28] MEDS ORDERED: TESSALON PERLES PO PRN (13:49)
[2017-08-28] MEDS ORDERED: NORCO 5-325 PO PRN (14:04)
[2017-08-28] MEDS: DUONEB NEB SCH ×2 (14:18→21:50)
[2017-08-28 14:21] VITALS: BMI 34.4
[2017-08-28] MEDS: ZAROXOLYN PO SCH (14:45)
--- NOTE | 2017-08-28 15:19 | RS.OTINEVL ---
Subjective - Patient information Date of Evaluation: 08/28/17 Date of Arrival on Unit: 08/28/17 Admitted From:: Facility Transfer Usual Living Arrangement: Alone Living Arrangement Comments: self, has help at her home ([place]) for cleaning. 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 Pt was independent with toileting. Pt has people come and clean her house for 1.5 hours 2 days a week. Pt has help getting groceries. Current Level of Function: Partially Dependent Current Equipment Used at Home: walker, oxygen, nebulizer Pain Assessment - Pain Pain Score: 0 Interventions - Objective Patient Orientation: Person, Place, Time, Situation Current Interventions: IV's, Oxygen, Telemetry Observation: Pt very SOA, and AK CHIN. Interventions - ROM Right Upper Extremity AROM: WFL's Left Upper Extremity AROM: WFL's - Strength Right Upper Extremity Strength: Mild Weakness Left Upper Extremity Strength: Mild Weakness - Sensation Right Upper Extremity Sensation: Intact/Normal Left Upper Extremity Sensation: Intact/Normal Balance - Sitting Balance Static Sitting Balance: Fair Dynamic Sitting Balance: Fair - Standing Balance Static Standing Balance: Fair Dynamic Standing Balance: Fair ADL Skills - Grooming Grooming: Min Assist - Bathing Bathing UE: Min Assist Bathing LE: Min Assist - Dressing Dressing UE: CGA Dressing LE: Max Assist - Toilet Management Toileting Management: CGA Functional Mobility - Bed Mobility Rolling R/L: Not Tested Scooting: Not Tested Supine to Sit: Not Tested Sit to Supine: Not Tested - Transfers Sit to Stand: CGA Stand to Sit: CGA Stand Pivot Transfers: CGA - Ambulation Weight Bearing Status: FWB Assistance needed with Ambulation: CGA - Safety Awareness Safety Awareness: Good Additional Treatment Performed - Time with patient Total treatment time: 28 Activities Patient Interests:: Visiting/Socializing Patient Education Patient Education: Home Exercise Program, Home Safety, Education of Plan of Care Teaching Recipient: Patient Teaching Methods: Discussion Assessment Problem List:: Decreased level of function, Requires training/education, Decreased safety/Risk of falls, Weakness Rehab Potential: Good Further Therapy Indicated?: Yes Short Term Goals - Goals GOAL 1: Pt to tolerate toilet transfers CGA. Goal to be met by: 09/04/17 GOAL 2: Pt to tolerate sink level ADLS CGA Goal to be met by: 09/04/17 GOAL 3: Pt to increase BUE strength to 4/5. Goal to be met by: 09/04/17 Electromechanical Inspector Goals GOAL 1: Pt to tolerate toilet transfers Mod-I. Goal to be met by: 09/11/17 GOAL 2: Pt to tolerate sink level ADLS MOD-I Goal to be met by: 09/11/17 GOAL 3: Pt to increase BUE strength to 4+/5. Goal to be met by: 09/11/17 Plan Plan of Care: Therapeutic EX, Neuromuscular Re-Educ, Therapeutic Activity, Self- Care/Home Management Frequency of Treatment: 1-2 X day, as tolerated Duration of Treatment: 2 Weeks Anticipated Discharge Destination: Home Has the Physician been added for Co-signature?: Yes
[2017-08-28] MEDS: COREG PO SCH (17:28)
[2017-08-28] MEDS: LOTRIMIN TP SCH (20:26)
[2017-08-28] MEDS: SOLU-MEDROL 125 MG IVP SCH (20:27)
[2017-08-28] MEDS: MUCINEX PO SCH (20:27)
[2017-08-28] MEDS: CARDIZEM PO SCH (20:27)
[2017-08-28] MEDS: PERFOROMIST NEB SCH (22:10)
[2017-08-29] MEDS ORDERED: MYLANTA SUSP PO STA (03:03)
[2017-08-29] MEDS: DUONEB NEB SCH ×4 (05:15→20:30)
[2017-08-29] MEDS: PERFOROMIST NEB SCH ×2 (05:50→21:41)
[2017-08-29] MEDS: CARDIZEM PO SCH ×3 (06:33→21:25)
[2017-08-29] MEDS: PROTONIX PO SCH (06:33)
[2017-08-29] MEDS: LIPITOR PO SCH (09:49)
[2017-08-29] MEDS: SOLU-MEDROL 125 MG IVP SCH ×2 (09:49→21:25)
[2017-08-29] MEDS: MUCINEX PO SCH ×2 (09:49→21:25)
[2017-08-29] MEDS: LOVENOX SUBCUT SCH (09:49)
[2017-08-29] MEDS: PLAVIX PO SCH (09:49)
[2017-08-29] MEDS: COREG PO SCH ×2 (09:49→17:52)
[2017-08-29] MEDS: ROCEPHIN 1 GM in SODIUM CHLORIDE 50 ML IV SCH (09:50)
[2017-08-29] MEDS: NON-FORMULARY MEDICATION (Calcitriol [Calcitriol] 0.25 MCG) PO SCH (09:54)
[2017-08-29] MEDS: LOTRIMIN TP SCH ×2 (09:55→21:25)
[2017-08-29] MEDS: TERIPARATIDE SQ SCH (10:01)
[2017-08-29] MEDS: VANCOMYCIN 500 MG in SODIUM CHLORIDE 100 ML IV SCH (10:47)
[2017-08-30] MEDS: DUONEB NEB SCH ×4 (05:20→21:45)
[2017-08-30] MEDS: CARDIZEM PO SCH ×3 (05:40→20:18)
[2017-08-30] MEDS: PROTONIX PO SCH (05:40)
[2017-08-30] MEDS: PERFOROMIST NEB SCH ×2 (06:05→21:56)
[2017-08-30] MEDS: ROCEPHIN 1 GM in SODIUM CHLORIDE 50 ML IV SCH (09:36)
[2017-08-30] MEDS: PLAVIX PO SCH (09:37)
[2017-08-30] MEDS: LIPITOR PO SCH (09:37)
[2017-08-30] MEDS: COREG PO SCH ×2 (09:37→16:52)
[2017-08-30] MEDS: MUCINEX PO SCH ×2 (09:37→20:18)
[2017-08-30] MEDS: LOVENOX SUBCUT SCH (09:37)
[2017-08-30] MEDS: SOLU-MEDROL 125 MG IVP SCH ×2 (09:38→21:30)
[2017-08-30] MEDS: LOTRIMIN TP SCH ×2 (09:38→20:19)
[2017-08-30] MEDS: MIRALAX PO SCH (09:39)
[2017-08-30] MEDS: NON-FORMULARY MEDICATION (Calcitriol [Calcitriol] 0.25 MCG) PO SCH (09:40)
[2017-08-30] MEDS: TERIPARATIDE SQ SCH (09:41)
[2017-08-30] MEDS: VANCOMYCIN 500 MG in SODIUM CHLORIDE 100 ML IV SCH (10:29)
[2017-08-30] MEDS: ZAROXOLYN PO SCH (13:32)
[2017-08-31] MEDS: DUONEB NEB SCH ×4 (04:58→21:30)
[2017-08-31] MEDS: PERFOROMIST NEB SCH ×2 (05:12→17:57)
[2017-08-31] MEDS: CARDIZEM PO SCH ×3 (05:56→21:13)
[2017-08-31] MEDS: PROTONIX PO SCH (05:56)
--- NOTE | 2017-08-31 08:18 | PN ---
DATE OF SERVICE: 08/29/17 SUBJECTIVE: The patient is in the transitional care for the IV antibiotics for the pneumonia. Still has leg edema and shortness of breath is somewhat better worse with minimal exertion. Leg edema is present. REVIEW OF SYSTEMS: CONSTITUTIONAL: No fever, no chills. HEENT: Normal. ENDOCRINE: No weight gain, no weight loss. CVS: No angina symptoms. No CHF symptoms. No palpitations. No atypical chest pain for CAD. No shortness of breath. No PND, no orthopnea. RESPIRATORY: No cough, no hemoptysis. GI: No nausea, no vomiting. No abdominal pain. : No hematuria. No polyuria. MUSCULOSKELETAL: No joint swelling. PSYCHIATRIC: Not anxious. No depression. No suicidal thoughts. No homicidal thoughts. SKIN: Intact. No rash. PHYSICAL EXAMINATION: V/S: Blood pressure 154/67, respiratory rate 18, heart rate 60, temperature 97.6 with saturation 99 on 3 liters. HEENT: Normocephalic, atraumatic. Mucosa dry. Pallor positive. No icterus. NECK: Supple. No JVD, no carotid bruit. No lymphadenopathy. LUNGS: Bilateral entry is decreased and basilar crackles. Clear to auscultation. No rales or rhonchi. HEART: S1, S2 normal. No S3. No murmur, gallop or regurgitation. ABDOMEN: Soft, nontender. Bowel sounds active. No rigidity. No rebound or guarding. No CVA tenderness. EXTREMITIES: 2+ edema. No clubbing or cyanosis MUSCULOSKELETAL: No joint swelling. NEUROLOGIC: Awake, alert, oriented times three. No focal deficit. LYMPHATIC: No lymph nodes palpable. SKIN: Intact. LABS: Sodium 140, potassium 4.8, chloride 92, bicarb 44, BUN 58, creatinine 1.58, WBC 8.0, hgb 10.3, hct 32.4, plt count 98 ASSESSMENT: 1. Pneumonia, bilateral 2. Acute on chronic renal failure 3. Anemia 4. Coronary artery disease 5. CHF 6. Dyslipidemia 7. Chronic kidney disease PLAN: 1. Continue Rocephin, Vancomycin, breathing treatment and DUO NEBS, Solu-Medrol 2. Lovenox for the DVT prophylaxis 3. Daily I&O's TIME SPENT: More than 35 minutes MTDD
[2017-08-31] MEDS: NON-FORMULARY MEDICATION (Calcitriol [Calcitriol] 0.25 MCG) PO SCH (08:43)
[2017-08-31] MEDS: LIPITOR PO SCH (08:43)
[2017-08-31] MEDS: COREG PO SCH ×2 (08:43→16:30)
[2017-08-31] MEDS: PLAVIX PO SCH (08:43)
[2017-08-31] MEDS: MUCINEX PO SCH ×2 (08:43→21:13)
[2017-08-31] MEDS: LOVENOX SUBCUT SCH (08:44)
[2017-08-31] MEDS: SOLU-MEDROL 125 MG IVP SCH ×2 (08:44→21:36)
[2017-08-31] MEDS: VANCOMYCIN 500 MG in SODIUM CHLORIDE 100 ML IV SCH (08:44)
[2017-08-31] MEDS: TERIPARATIDE SQ SCH (08:46)
[2017-08-31] MEDS: LOTRIMIN TP SCH ×2 (10:16→21:38)
[2017-08-31] MEDS: ROCEPHIN 1 GM in SODIUM CHLORIDE 50 ML IV SCH (10:16)
--- NOTE | 2017-08-31 10:37 | PN ---
DATE OF SERVICE: 08/30/17 SUBJECTIVE: The is a lot better. She has some shortness of breath with exertion. Otherwise, no fever or chills. Coughing some, but not able to bring any phlegm. REVIEW OF SYSTEMS: CONSTITUTIONAL: No fever, no chills. HEENT: Normal. ENDOCRINE: No weight gain, no weight loss. CVS: No angina symptoms. No CHF symptoms. No palpitations. No atypical chest pain for CAD. No shortness of breath. No PND, no orthopnea. RESPIRATORY: Cough, no hemoptysis. GI: No nausea, no vomiting. No abdominal pain. : No hematuria. No polyuria. MUSCULOSKELETAL: No joint swelling. PSYCHIATRIC: Not anxious. No depression. No suicidal thoughts. No homicidal thoughts. SKIN: Intact. No rash. PHYSICAL EXAMINATION: V/S: Blood pressure 146/66, respiratory rate 20, heart rate 65, temperature 98.3 , saturation 94 on 2 liters. HEENT: Normocephalic, atraumatic. Mucosa dry. Pallor positive. No icterus. NECK: Supple. No JVD, no carotid bruit. No lymphadenopathy. LUNGS: Decreased air entry, expiratory wheezing and basilar crackles are present. No rales or rhonchi. HEART: S1, S2 normal. No S3. No murmur, gallop or regurgitation. ABDOMEN: Soft, nontender. Bowel sounds active. No rigidity. No rebound or guarding. No CVA tenderness. EXTREMITIES: 1+ edema with a lot of wrinkles. No clubbing or cyanosis MUSCULOSKELETAL: No joint swelling. NEUROLOGIC: Awake, alert, oriented times three. No focal deficit. Very hard of hearing. LYMPHATIC: No lymph nodes palpable. SKIN: Intact. LABS: White count 8.0, hemoglobin 10.3, hematocrit 32.6, platelet count 98, sodium 140, potassium 3.8, chloride 92, bicarb 44, BUN 58, creatinine 1.58. ASSESSMENT: 1. ACUTE ON CHRONIC RENAL FAILURE 2. COPD EXACERBATION SECONDARY TO THE BILATERAL PNEUMONIA 3. ACUTE ON CHRONIC HEART FAILURE 4. ANEMIA 5. CONGESTIVE HEART FAILURE 6. DEPENDENT EDEMA 7. OSTEOARTHRITIS 8. DJD OF THE SPINE PLAN: 1. Continue the Rocephin and Vancomycin. 2. DuoNebs. 3. Solu-Medrol. 4. Daily I & O's. 5. Will get a CMP in the morning. TIME SPENT: More than 35 minutes MTDD
--- NOTE | 2017-08-31 11:21 | DI ---
EXAM: CHEST FRONTAL VIEW HISTORY: Pneumonia, follow-up. COMPARISON: 08/26/2017 FINDINGS: Prominent heart size is stable. Stable pacemaker unit. Moderate atherosclerotic disease. Slightly improved bibasilar patchy densities may represent improving atelectasis or pneumonia. Ther e is no active congestive heart failure, pneumothorax or well-defined pleural fluid. IMPRESSION: Slight improvement in bibasilar densities since previous exam suggesting improving pneumonia or atele ctasis.
[2017-09-01] MEDS: DUONEB NEB SCH ×4 (04:50→20:03)
[2017-09-01] MEDS: PERFOROMIST NEB SCH ×2 (05:02→20:20)
[2017-09-01] MEDS: PROTONIX PO SCH (05:38)
[2017-09-01] MEDS: CARDIZEM PO SCH ×3 (05:38→20:47)
[2017-09-01] MEDS ORDERED: CITRATE OF MAGNESIA PO STA ×2 (07:50→08:44)
[2017-09-01] MEDS: LOVENOX SUBCUT SCH (09:00)
[2017-09-01] MEDS: ROCEPHIN 1 GM in SODIUM CHLORIDE 50 ML IV SCH (09:00)
[2017-09-01] MEDS: LOTRIMIN TP SCH ×2 (09:01→20:48)
[2017-09-01] MEDS: MUCINEX PO SCH ×2 (09:01→20:47)
[2017-09-01] MEDS: LIPITOR PO SCH (09:01)
[2017-09-01] MEDS: PLAVIX PO SCH (09:01)
[2017-09-01] MEDS: COREG PO SCH ×2 (09:01→16:44)
[2017-09-01] MEDS: SOLU-MEDROL 125 MG IVP SCH ×2 (09:01→20:47)
[2017-09-01] MEDS: NON-FORMULARY MEDICATION (Calcitriol [Calcitriol] 0.25 MCG) PO SCH (09:02)
[2017-09-01] MEDS: TERIPARATIDE SQ SCH (09:03)
[2017-09-01] MEDS: MIRALAX PO SCH (09:03)
[2017-09-01] MEDS: VANCOMYCIN 500 MG in SODIUM CHLORIDE 100 ML IV SCH (10:23)
[2017-09-01] MEDS: ZAROXOLYN PO SCH (13:03)
[2017-09-01] MEDS: LASIX IVP PRN (21:30)
[2017-09-02] MEDS: DUONEB NEB SCH ×4 (05:15→20:35)
[2017-09-02] MEDS: CARDIZEM PO SCH ×3 (05:45→20:59)
[2017-09-02] MEDS: PROTONIX PO SCH (05:45)
[2017-09-02] MEDS: PERFOROMIST NEB SCH ×2 (05:50→20:50)
[2017-09-02] MEDS: ROCEPHIN 1 GM in SODIUM CHLORIDE 50 ML IV SCH (08:29)
[2017-09-02] MEDS: SOLU-MEDROL 125 MG IVP SCH ×2 (08:29→20:59)
[2017-09-02] MEDS: LOVENOX SUBCUT SCH (08:30)
[2017-09-02] MEDS: PLAVIX PO SCH (08:31)
[2017-09-02] MEDS: MUCINEX PO SCH ×2 (08:31→20:59)
[2017-09-02] MEDS: NON-FORMULARY MEDICATION (Calcitriol [Calcitriol] 0.25 MCG) PO SCH (08:31)
[2017-09-02] MEDS: COREG PO SCH ×2 (08:32→16:36)
[2017-09-02] MEDS: LIPITOR PO SCH (08:32)
[2017-09-02] MEDS: LOTRIMIN TP SCH ×2 (08:33→21:01)
[2017-09-02] MEDS: TERIPARATIDE SQ SCH (08:51)
[2017-09-02] MEDS: VANCOMYCIN 500 MG in SODIUM CHLORIDE 100 ML IV SCH (09:31)
[2017-09-02] MEDS: LIBRIUM PO SCH ×2 (14:56→20:59)
[2017-09-03] MEDS: CARDIZEM PO SCH ×3 (04:16→21:38)
[2017-09-03] MEDS: DUONEB NEB SCH ×4 (05:05→19:50)
[2017-09-03] MEDS: PERFOROMIST NEB SCH ×2 (05:15→20:00)
[2017-09-03] MEDS: PROTONIX PO SCH (05:32)
[2017-09-03] MEDS: VANCOMYCIN 500 MG in SODIUM CHLORIDE 100 ML IV SCH (08:44)
[2017-09-03] MEDS: MUCINEX PO SCH ×3 (08:45→21:38)
[2017-09-03] MEDS: LOVENOX SUBCUT SCH (08:45)
[2017-09-03] MEDS: LIBRIUM PO SCH ×3 (08:45→21:38)
[2017-09-03] MEDS: PLAVIX PO SCH (08:46)
[2017-09-03] MEDS: NON-FORMULARY MEDICATION (Calcitriol [Calcitriol] 0.25 MCG) PO SCH (08:46)
[2017-09-03] MEDS: LIPITOR PO SCH (08:46)
[2017-09-03] MEDS: COREG PO SCH ×2 (08:46→16:34)
[2017-09-03] MEDS: LOTRIMIN TP SCH ×2 (08:47→21:41)
[2017-09-03] MEDS: MIRALAX PO SCH (08:48)
[2017-09-03] MEDS: TERIPARATIDE SQ SCH (08:48)
[2017-09-03] MEDS: SOLU-MEDROL 125 MG IVP SCH ×2 (08:52→21:38)
[2017-09-03] MEDS: ROCEPHIN 1 GM in SODIUM CHLORIDE 50 ML IV SCH (09:58)
[2017-09-03] MEDS ORDERED: AZACTAM ONE ×2 (14:35→20:32)
[2017-09-03] MEDS: AZACTAM 1 GM in SODIUM CHLORIDE 50 ML IV SCH ×2 (14:41→21:40)
[2017-09-04] MEDS: CARDIZEM PO SCH ×3 (04:10→20:24)
[2017-09-04] MEDS: DUONEB NEB SCH ×4 (05:10→20:00)
[2017-09-04] MEDS: PERFOROMIST NEB SCH ×2 (05:20→18:04)
[2017-09-04] MEDS: PROTONIX PO SCH (05:33)
[2017-09-04] MEDS ORDERED: CITRATE OF MAGNESIA PO STA (09:07)
[2017-09-04] MEDS: NON-FORMULARY MEDICATION (Calcitriol [Calcitriol] 0.25 MCG) PO SCH (09:38)
[2017-09-04] MEDS: AZACTAM 1 GM in SODIUM CHLORIDE 50 ML IV SCH ×2 (09:38→20:23)
[2017-09-04] MEDS: LIBRIUM PO SCH ×3 (09:39→20:23)
[2017-09-04] MEDS: COREG PO SCH ×2 (09:39→17:14)
[2017-09-04] MEDS: LIPITOR PO SCH (09:40)
[2017-09-04] MEDS: LOTRIMIN TP SCH ×2 (09:41→20:45)
[2017-09-04] MEDS: MUCINEX PO SCH ×2 (09:41→20:23)
[2017-09-04] MEDS: PLAVIX PO SCH (09:42)
[2017-09-04] MEDS: TERIPARATIDE SQ SCH ×2 (09:42→10:04)
[2017-09-04] MEDS: LOVENOX SUBCUT SCH (10:01)
[2017-09-04] MEDS: VANCOMYCIN 500 MG in SODIUM CHLORIDE 100 ML IV SCH (10:57)
[2017-09-04] MEDS: SOLU-MEDROL 125 MG IVP SCH ×2 (11:42→20:44)
--- NOTE | 2017-09-04 12:40 | PN ---
DATE OF SERVICE: 08/31/17 SUBJECTIVE: The patient still has shortness of breath. The patient has been getting the IV antibiotics for the bilateral pneumonia. Leg edema is better. Still shortness of breath with minimal exertion. REVIEW OF SYSTEMS: CONSTITUTIONAL: No fever, no chills. HEENT: Normal. ENDOCRINE: No weight gain, no weight loss. CVS: No angina symptoms. No CHF symptoms. No palpitations. No atypical chest pain for CAD. Shortness of breath. No PND, no orthopnea. RESPIRATORY: No cough, no hemoptysis. GI: No nausea, no vomiting. No abdominal pain. : No hematuria. No polyuria. MUSCULOSKELETAL: No joint swelling. PSYCHIATRIC: Not anxious. No depression. No suicidal thoughts. No homicidal thoughts. SKIN: Intact. No rash. PHYSICAL EXAMINATION: V/S: Blood pressure 101/76, respiratory rate 16, heart rate 68, temperature 98, saturation 97 on 2 liters. HEENT: Normocephalic, atraumatic. Mucosa dry. Pallor positive. No icterus. NECK: Supple. No JVD, no carotid bruit. No lymphadenopathy. LUNGS: Decreased basilar crackles. No rales or rhonchi. HEART: S1, S2 normal. No S3. No murmur, gallop or regurgitation. ABDOMEN: Soft, nontender. Bowel sounds active. No rigidity. No rebound or guarding. No CVA tenderness. EXTREMITIES: 1+ edema. No clubbing or cyanosis MUSCULOSKELETAL: No joint swelling. NEUROLOGIC: Awake, alert, oriented times three. No focal deficit. LYMPHATIC: No lymph nodes palpable. SKIN: Intact. LABS: White count 8.0, hemoglobin 10.3, hematocrit 32.6, platelet count 98, sodium 135, potassium 4.1, chloride 95, bicarb 37, BUN 61, creatinine 1.50. ASSESSMENT: 1. BILATERAL PNEUMONIA 2. ACUTE ON CHRONIC HEART FAILURE 3. ACUTE ON CHRONIC RENAL FAILURE 4. CORONARY ARTERY DISEASE 5. CONGESTIVE HEART FAILURE 6. CHRONIC KIDNEY DISEASE PLAN: 1. Continue the antibiotics of Rocephin and Vancomycin. 2. Breathing treatments. 3. Solu-Medrol. 4. Out of bed to chair. 5. Activity as tolerated. TIME SPENT: More than 35 minutes MTDD
--- NOTE | 2017-09-04 13:00 | PN ---
DATE OF SERVICE: 09/02/17 SUBJECTIVE: The patient is in the Transitional Care Unit and getting IV antibiotics for the pneumonia. Breathing is still harsh. Shortness of breath with minimal exertion. She had some questionable change in mental status. The patient was seeing people. As of now, the patient is awake, alert and oriented. REVIEW OF SYSTEMS: CONSTITUTIONAL: No fever, no chills. HEENT: Normal. ENDOCRINE: No weight gain, no weight loss. CVS: No angina symptoms. No CHF symptoms. No palpitations. No atypical chest pain for CAD. Shortness of breath. No PND, no orthopnea. RESPIRATORY: No cough, no hemoptysis. GI: No nausea, no vomiting. No abdominal pain. : No hematuria. No polyuria. MUSCULOSKELETAL: No joint swelling. PSYCHIATRIC: Not anxious. No depression. No suicidal thoughts. No homicidal thoughts. SKIN: Intact. No rash. PHYSICAL EXAMINATION: V/S: Blood pressure 102/51, respiratory rate 20, heart rate 71, temperature 97.4 , saturation 93. HEENT: Normocephalic, atraumatic. Mucosa dry. Pallor positive. No icterus. NECK: Supple. No JVD, no carotid bruit. No lymphadenopathy. LUNGS: Decreased basilar crackles.. No rales or rhonchi. HEART: S1, S2 normal. No S3. No murmur, gallop or regurgitation. ABDOMEN: Soft, nontender. Bowel sounds active. No rigidity. No rebound or guarding. No CVA tenderness. EXTREMITIES: 2+ edema. No clubbing or cyanosis MUSCULOSKELETAL: No joint swelling. NEUROLOGIC: Awake, alert, oriented times three. No focal deficit. LYMPHATIC: No lymph nodes palpable. SKIN: Intact. LABS: White count 6.88, hemoglobin 10.4, hematocrit 31.5, platelet count 180. Sodium 136, potassium 3.9, chloride 95, bicarb 36, BUN 70, creatinine 1.57, glucose 139. ASSESSMENT: 1. ACUTE ON CHRONIC RENAL FAILURE. 2. HEALTHCARE FACILITY ACQUIRED PNEUMONIA 3. HYPOXEMIC RESPIRATORY FAILURE 4. CORONARY ARTERY DISEASE 5. CONGESTIVE HEART FAILURE 6. ANEMIA PLAN: 1. Continue the Vancomycin, Rocephin. 2. Will start the patient on the Chlordiazepoxide 10 mg three times daily. 3. Lasix IV push prn. 4. Mucinex. 5. Lovenox for the DVT prophylaxis. 6. Daily I & O's. TIME SPENT: More than 35 minutes MTDD
--- NOTE | 2017-09-04 13:08 | PN ---
DATE OF SERVICE: 09/03/17 SUBJECTIVE: The patient was able to walk to the bathroom by herself, but got the shortness of breath. Leg edema is slightly worse than yesterday. Shortness of breath with minimal exertion. REVIEW OF SYSTEMS: CONSTITUTIONAL: No fever, no chills. HEENT: Normal. ENDOCRINE: No weight gain, no weight loss. CVS: No angina symptoms. No CHF symptoms. No palpitations. No atypical chest pain for CAD. Shortness of breath. No PND, no orthopnea. RESPIRATORY: No cough, no hemoptysis. GI: No nausea, no vomiting. No abdominal pain. : No hematuria. No polyuria. MUSCULOSKELETAL: No joint swelling. PSYCHIATRIC: Not anxious. No depression. No suicidal thoughts. No homicidal thoughts. SKIN: Intact. No rash. PHYSICAL EXAMINATION: V/S: Blood pressure 126/74, respiratory rate 18, heart rate 68, temperature 98, saturation 94 on 2 liters. HEENT: Normocephalic, atraumatic. Mucosa dry. Pallor positive. No icterus. NECK: Supple. No JVD, no carotid bruit. No lymphadenopathy. LUNGS: Slightly in respiratory distress. Decreased basilar crackles. No rales or rhonchi. HEART: S1, S2 normal. No S3. No murmur, gallop or regurgitation. ABDOMEN: Soft, nontender. Bowel sounds active. No rigidity. No rebound or guarding. No CVA tenderness. EXTREMITIES: 2+ edema. No clubbing or cyanosis MUSCULOSKELETAL: No joint swelling. NEUROLOGIC: Awake, alert, oriented times three. No focal deficit. LYMPHATIC: No lymph nodes palpable. SKIN: Intact. LABS: Sodium 137, potassium 3.6, chloride 87, bicarb 39, BUN 76, creatinine 1.85, glucose 176, white count 6.30, hemoglobin 10.1, hematocrit 30.5, platelet count 123. ASSESSMENT: 1. ACUTE ON CHRONIC RENAL FAILURE 2. HEALTHCARE FACILITY ACQUIRED PNEUMONIA 3. ANEMIA 4. CORONARY ARTERY DISEASE 5. CONGESTIVE HEART FAILURE 6. CHRONIC KIDNEY DISEASE PLAN: 1. Continue the Chlordiazepoxide. 2. Daily I & O's. 3. Continue Rocephin and Vancomycin. TIME SPENT: More than 35 minutes MTDD
[2017-09-04] MEDS: ZAROXOLYN PO SCH (14:26)
[2017-09-04] MEDS: LASIX IVP PRN (14:34)
[2017-09-05] MEDS: DUONEB NEB SCH ×4 (04:47→20:30)
[2017-09-05] MEDS: PERFOROMIST NEB SCH ×2 (05:04→20:45)
[2017-09-05] MEDS: CARDIZEM PO SCH ×3 (05:43→21:09)
[2017-09-05] MEDS: PROTONIX PO SCH (05:43)
[2017-09-05] MEDS: AZACTAM 1 GM in SODIUM CHLORIDE 50 ML IV SCH ×2 (08:57→21:08)
[2017-09-05] MEDS: MIRALAX PO SCH (09:01)
[2017-09-05] MEDS: NON-FORMULARY MEDICATION (Calcitriol [Calcitriol] 0.25 MCG) PO SCH (09:03)
[2017-09-05] MEDS: COREG PO SCH ×2 (09:03→17:10)
[2017-09-05] MEDS: LIBRIUM PO SCH ×3 (09:03→21:10)
[2017-09-05] MEDS: LIPITOR PO SCH (09:03)
[2017-09-05] MEDS: LOTRIMIN TP SCH (09:04)
[2017-09-05] MEDS: PLAVIX PO SCH (09:05)
[2017-09-05] MEDS: TERIPARATIDE SQ SCH (09:05)
[2017-09-05] MEDS: MUCINEX PO SCH ×2 (09:05→21:10)
[2017-09-05] MEDS: LOVENOX SUBCUT SCH (09:06)
[2017-09-05] MEDS: SOLU-MEDROL 125 MG IVP SCH ×2 (09:43→20:06)
--- NOTE | 2017-09-05 11:14 | PN ---
DATE OF SERVICE: 09/04/17 SUBJECTIVE: The patient is sitting in a chair. She is still short of breath even with minimal activity. She is being treated for bilateral pneumonia with Rocephin and Vancomycin. Antibiotic changes to Azactam yesterday. The patient' s condition is gradually deteriorating. BUN and creatinine is again increasing up now and worsening and she doesn't want to have hemodialysis or any aggressive management at this point. Family is acceptable with that. REVIEW OF SYSTEMS: CONSTITUTIONAL: No fever, no chills. HEENT: Normal. ENDOCRINE: No weight gain, no weight loss. CVS: No angina symptoms. No CHF symptoms. No palpitations. No atypical chest pain for CAD. No shortness of breath. No PND, no orthopnea. RESPIRATORY: No cough, no hemoptysis. GI: No nausea, no vomiting. No abdominal pain. : No hematuria. No polyuria. MUSCULOSKELETAL: No joint swelling. PSYCHIATRIC: Not anxious. No depression. No suicidal thoughts. No homicidal thoughts. SKIN: Intact. No rash. PHYSICAL EXAMINATION: V/S: Blood pressure 109/69, respiratory rate 24, heart rate 64, temperature 97.7 , saturation 90 on 3 liters. HEENT: Normocephalic, atraumatic. Mucosa dry. Pallor positive. No icterus. NECK: Supple. No JVD, no carotid bruit. No lymphadenopathy. LUNGS: Decreased basilar crackles. No rales or rhonchi. HEART: S1, S2 normal. No S3. No murmur, gallop or regurgitation. ABDOMEN: Soft, nontender. Bowel sounds active. No rigidity. No rebound or guarding. No CVA tenderness. EXTREMITIES: 2+ edema. No clubbing or cyanosis MUSCULOSKELETAL: No joint swelling. NEUROLOGIC: Awake, alert, oriented times three. No focal deficit. LYMPHATIC: No lymph nodes palpable. SKIN: Intact. LABS: Sodium 138, potassium 3.4, chloride 87, bicarb 40, BUN 67, creatinine 1.64, glucose 145, white count 6.79, hemoglobin 9.8, hematocrit 29.8, platelet count 118. ASSESSMENT: 1. ACUTE ON CHRONIC RENAL FAILURE, WHICH IS GETTING BETTER TODAY AGAIN 2. BILATERAL PNEUMONIA 3. ANEMIA 4. CORONARY ARTERY DISEASE 5. CONGESTIVE HEART FAILURE 6. FLUID OVERLOAD PLAN: 1. Continue Azactam, Vancomycin, DuoNeb. 2. Daily I & O's. 3. Lasix IV push as needed. TIME SPENT: More than 35 minutes MTDD
[2017-09-05] MEDS ORDERED: MORPHINE 2 MG/ML SYRINGE IVP STA (15:33)
[2017-09-05] MEDS ORDERED: SOLU-MEDROL 125 MG IVP STA (15:34)
[2017-09-05] MEDS: MORPHINE 2 MG/ML SYRINGE IVP PRN ×2 (20:06→23:00)
[2017-09-06] MEDS: DUONEB NEB SCH ×4 (04:40→20:00)
[2017-09-06] MEDS: PERFOROMIST NEB SCH ×2 (04:53→20:10)
[2017-09-06] MEDS: CARDIZEM PO SCH ×3 (05:57→20:34)
[2017-09-06] MEDS: PROTONIX PO SCH (05:57)
[2017-09-06] MEDS: AZACTAM 1 GM in SODIUM CHLORIDE 50 ML IV SCH ×2 (09:11→20:33)
[2017-09-06] MEDS: SOLU-MEDROL 125 MG IVP SCH ×2 (09:12→21:10)
[2017-09-06] MEDS: LOVENOX SUBCUT SCH (09:12)
[2017-09-06] MEDS: PLAVIX PO SCH (09:12)
[2017-09-06] MEDS: LIBRIUM PO SCH ×3 (09:13→20:33)
[2017-09-06] MEDS: MUCINEX PO SCH ×2 (09:13→20:34)
[2017-09-06] MEDS: LIPITOR PO SCH (09:13)
[2017-09-06] MEDS: COREG PO SCH ×2 (09:13→17:19)
[2017-09-06] MEDS: NON-FORMULARY MEDICATION (Calcitriol [Calcitriol] 0.25 MCG) PO SCH (09:13)
[2017-09-06] MEDS: TERIPARATIDE SQ SCH (09:45)
[2017-09-06] MEDS: ZAROXOLYN PO SCH (13:28)
[2017-09-06] MEDS ORDERED: ALBUTEROL 0.083% NEB NEB PRN (14:50)
[2017-09-06] MEDS: MORPHINE 2 MG/ML SYRINGE IVP PRN (21:10)
[2017-09-07] MEDS: DUONEB NEB SCH ×4 (05:25→19:35)
[2017-09-07] MEDS: PROTONIX PO SCH (05:29)
[2017-09-07] MEDS: CARDIZEM PO SCH ×3 (05:29→20:17)
[2017-09-07] MEDS: PERFOROMIST NEB SCH ×2 (05:35→19:45)
[2017-09-07] MEDS: AZACTAM 1 GM in SODIUM CHLORIDE 50 ML IV SCH ×2 (09:21→20:17)
[2017-09-07] MEDS: SOLU-MEDROL 125 MG IVP SCH ×2 (09:22→20:17)
[2017-09-07] MEDS: MIRALAX PO SCH (09:22)
[2017-09-07] MEDS: TERIPARATIDE SQ SCH (09:22)
[2017-09-07] MEDS: LOVENOX SUBCUT SCH (09:22)
[2017-09-07] MEDS: NON-FORMULARY MEDICATION (Calcitriol [Calcitriol] 0.25 MCG) PO SCH (09:23)
[2017-09-07] MEDS: COREG PO SCH ×2 (09:23→17:06)
[2017-09-07] MEDS: MUCINEX PO SCH ×2 (09:23→20:17)
[2017-09-07] MEDS: PLAVIX PO SCH (09:23)
[2017-09-07] MEDS: LIBRIUM PO SCH ×3 (09:23→20:17)
[2017-09-07] MEDS: LIPITOR PO SCH (09:23)
--- NOTE | 2017-09-07 10:11 | PN ---
DATE OF SERVICE: 09/05/17 SUBJECTIVE: BUN and creatinine is worse at 85 and 1.73. The patient is more short of breath. Leg edema had worsened. Patient did get one Lasix yesterday and it did not help much. REVIEW OF SYSTEMS: CONSTITUTIONAL: No fever, no chills. HEENT: Normal. ENDOCRINE: No weight gain, no weight loss. CVS: No angina symptoms. No CHF symptoms. No palpitations. No atypical chest pain for CAD. Shortness of breath. No PND, no orthopnea. RESPIRATORY: No cough, no hemoptysis. GI: No nausea, no vomiting. No abdominal pain. : No hematuria. No polyuria. MUSCULOSKELETAL: No joint swelling. Leg edema. PSYCHIATRIC: Not anxious. No depression. No suicidal thoughts. No homicidal thoughts. SKIN: Intact. No rash. PHYSICAL EXAMINATION: V/S: Blood pressure 104/57, respiratory rate 24, heart rate 61, temperature 97.2 , saturation 98. HEENT: Normocephalic, atraumatic. Mucosa dry. Pallor positive. No icterus. NECK: Supple. No JVD, no carotid bruit. No lymphadenopathy. LUNGS: Decreased basilar crackles with expiratory wheezing. No rales or rhonchi. HEART: S1, S2 normal. No S3. No murmur, gallop or regurgitation. ABDOMEN: Soft, nontender. Bowel sounds active. No rigidity. No rebound or guarding. No CVA tenderness. EXTREMITIES: No pedal edema. No clubbing or cyanosis MUSCULOSKELETAL: 2+ edema up to the thighs. NEUROLOGIC: Responds to painful stimulus and then goes back to sleep. LYMPHATIC: No lymph nodes palpable. SKIN: Intact and dry. LABS: White count 5.88, hemoglobin 10.0, hematocrit 30.4, platelet count 123, sodium 137, potassium 3.6, chloride 88, bicarb 39, BUN 85, creatinine 1.73, glucose 161. ASSESSMENT: 1. ACUTE ON CHRONIC RENAL FAILURE 2. HEALTH CARE FACILITY ACQUIRED PNEUMONIA 3. COPD EXACERBATION 4. HYPOXEMIA 5. CORONARY ARTERY DISEASE 6. CONGESTIVE HEART FAILURE 7. ANEMIA PLAN: 1. Stop IV Lasix. 2. Daily I & O's. 3. Restrict I & O's to 1500 ml. 4. Continue the Azactam and Vancomycin. 5. Keep doing the Vancomycin trough levels. Poor prognosis has been discussed with the patient's family and they verbalized understanding. TIME SPENT: More than 35 minutes MTDD
[2017-09-07] MEDS: MORPHINE 2 MG/ML SYRINGE IVP PRN (19:27)
[2017-09-07] MEDS ORDERED: CARDIZEM ONE (23:46)
[2017-09-08] MEDS: DUONEB NEB SCH ×3 (05:32→14:10)
[2017-09-08] MEDS: CARDIZEM PO SCH ×2 (05:36→13:58)
[2017-09-08] MEDS: PROTONIX PO SCH (05:36)
[2017-09-08] MEDS: PERFOROMIST NEB SCH (05:44)
[2017-09-08 06:10] VITALS: BP 101/61; TEMP 97.4
[2017-09-08] MEDS: LOVENOX SUBCUT SCH (09:41)
[2017-09-08] MEDS: TERIPARATIDE SQ SCH (09:41)
[2017-09-08] MEDS: AZACTAM 1 GM in SODIUM CHLORIDE 50 ML IV SCH (09:41)
[2017-09-08] MEDS: LIBRIUM PO SCH ×2 (09:42→14:03)
[2017-09-08] MEDS: LIPITOR PO SCH (09:42)
[2017-09-08] MEDS: COREG PO SCH (09:42)
[2017-09-08] MEDS: MUCINEX PO SCH (09:43)
[2017-09-08] MEDS: SOLU-MEDROL 125 MG IVP SCH (09:43)
[2017-09-08] MEDS: PLAVIX PO SCH (09:43)
[2017-09-08] MEDS: NON-FORMULARY MEDICATION (Calcitriol [Calcitriol] 0.25 MCG) PO SCH (09:44)
[2017-09-08] MEDS: ZAROXOLYN PO SCH (14:03)
--- NOTE | 2017-09-08 14:42 | CM.DICTOOL ---
ADMISSION: 08/28/17 12:53 DISCHARGE: 2017 DATE OF SERVICE: 09/08/17 FINAL DIAGNOSIS Pneumonia Acute on Chronic Renal Failure COPD Exacerbation with co2 retention CAD CHF Leg Edema Hypertension Rheumatoid Arthritis Osteoarthritis Pacemaker Heart Stent Facial Carcinoma, removed Hearing Loss LAST VITALS Temp Pulse Resp BP Pulse Ox 97.4 F L 63 22 101/61 90 L 09/08/17 06:00 09/08/17 06:00 09/08/17 08:00 09/08/17 06:00 09/08/17 10:00 ACTIVE MEDICATIONS Albuterol/Ipratropium (Duoneb) 1 vial NEB RT TID [facility] Last Admin: 09/08/17 10:15 Dose: 1 vial Carvedilol (Coreg) 6.25 mg PO BIDWM [facility] Last Admin: 09/08/17 09:42 Dose: 6.25 mg Chlordiazepoxide HCl (Librium) 10 mg PO TID [facility] Last Admin: 09/08/17 09:42 Dose: 10 mg Clopidogrel Bisulfate (Plavix) 75 mg PO DAILY [facility] Last Admin: 09/08/17 09:43 Dose: 75 mg Diltiazem HCl (Cardizem) 60 mg PO Q8HR [facility] Last Admin: 09/08/17 05:36 Dose: 60 mg Guaifenesin (Mucinex) 600 mg PO Q12HR [facility] Last Admin: 09/08/17 09:43 Dose: 600 mg Metolazone (Zaroxolyn) 2.5 mg PO MOWEFR [facility] Last Admin: 09/06/17 13:28 Dose: 2.5 mg Pantoprazole Sodium (Protonix) 40 mg PO QDAC [facility] Last Admin: 09/08/17 05:36 Dose: 40 mg Polyethylene Glycol (Miralax) 17 gm PO EVERY OTHER DAY [facility] Last Admin: 09/07/17 09:22 Dose: 17 gm ALLERGIES No Known Allergies Allergy (Verified 08/09/17 16:34) NEW PRESCRIPTIONS: Ativan 1 mg oral every 6 hours (prescription) Prednisone 10 mg bid for 5 days Omnicef 300 mg bid for 5 days SMOKING: No smoking DISEASE SPECIFIC EDUCATION: Medications Oxygen LAB REVIEW: 09/07/17 04:30 09/07/17 04:30 PLAN: Discharge to [facility] Diet: Regular, low salt as tolerated (soft foods) 1500 ml Fluid Restriction Activity: up to chair as tolerated/desired Bedside commode prn Oxygen per cannula at 4 liters or venti-mask at 35-40% to maintain saturations at 85-92%. Elevate Head of Bed Elevate Legs when in bed and when sitting in chair Physical and Occupational Therapy Evaluation CMP in 1 week Weigh weekly Vital signs daily for 1 week, then weekly Oxygen saturation daily DNR per family request Dr. Esteves to see on custodial visit in 5-7 days. Ms. Bautista is alert and oriented x 3. She is short of air at rest and with exertion. Oxygen per nasal cannula at 4 liters alternating with venti-mask at 35 %. Pitting edema is noted to both lower extremities. She is continent of urine at times, but also incontinent. She feeds herself with frequent rest periods required due to shortness of breath. Meal intakes poor at 25-50%. Skin is intact and free of decubitus ulcers. She requires assistance of 2 staff members for bed mobility, transfers to the chair. Noted generalized weakness to the lower extremities. Mike Esteves MD
--- NOTE | 2017-10-09 11:46 | DS ---
DATE OF SERVICE: 09/08/17 FINAL DIAGNOSIS: 1. Pneumonia 2. COPD exacerbation with Co2 retention 3. Coronary artery disease 4. Congestive heart failure 5. Leg edema 6. Hypertension 7. Rheumatoid arthritis 8. Osteoarthritis 9. Pacemaker 10.Heart stent 11.Facial carcinoma, removed 12.Hearing loss LAST VITALS: Temperature 97.4, pulse 63, respiratory rate 22, blood pressure 101/61 and pulse ox 90% DISCHARGE INSTRUCTIONS: Discharge to [facility]. Oxygen per cannula at 4 liters or Venti-mask at 35-40% to maintain saturations at 85-92%. Elevate head of bed. Elevate legs when in bed and when sitting in chair. Physical and Occupational therapy evaluation. CMP in one week. Weigh weekly. Vital signs daily for 1 week , then weekly. Oxygen saturation daily. DNR per family request. Dr. Esteves to see on care home visits in 5-7 days. MEDICATIONS AT DISCHARGE: DUO NEBS 1 vial NEB RT three times a day Coreg 6.25mg PO twice a day Librium 10mg PO three times a day Plavix 75mg PO daily Cardizem 60mg PO Q 8 hours Mucinex 600mg PO Q 12 hours Zaroxolyn 2.5mg PO MOWEFR Protonix 40mg PO QDAC Miralax 17 gram PO every other day ALLERGIES: No known allergies NEW PRESCRIPTIONS: Ativan 1mg oral every 6 hours Prednisone 10mg twice a day for 5 days Omnicef 300mg twice a day for 5 days. DIET INSTRUCTIONS: Regular, low salt as tolerated (soft foods) 1500ml Fluid Restriction ACTIVITY: Up to chair as tolerated/desired Bedside commode PRN SMOKING: No smoking DISEASE SPECIFIC EDUCATION: Medications Oxygen HOSPITAL COURSE: Gabriela Ku who is an 87 year old female came to the emergency room with cough , congestion and shortness of breath. The patient was admitted on August 09 to the [facility]. Initial ABG showed the pH 7.425, pCO2 45.9, pO2 72. WBC was 14,000 with left shift. BUN was [address] of the chest done in the emergency room which showed stable cardiomegaly, coronary artery disease , no changes in the pulmonary fibrosis and no acute infiltrates but despite given the nebulizer and steroid treatment in the ER the patient was not feeling better so the patient was admitted to the hospital for the IV antibiotics, breathing treatment, COPD exacerbation secondary to the bronchitis and acute on chronic heart failure. The patient's course was complicated as patient's BUN and creatinine got worse and went up 70 and 1.92. Potassium went up to 5.6 and 6.0 which was corrected and the patient's daughter who is the power of power sewing machine operator don't want to do the hemodialysis as patient was acute on chronic renal failure with fluid overload and shortness of breath. Even decided that they don't want any aggressive management. The patient was maintained with the BIPAP and CPAP which she did tolerate well. Repeat ABG's done which did get worse over the time period. CO2 went up to 77-75 but the patient refused to have intubation. After initial treatment then patient was put in the transitional care unit. The stay did get complicated with the pneumonia. The patient was started on Rocephin and Vancomycin. Also breathing treatments were given. Gradually up and about. Did not get better. The patient was still short of breath with minimal exertion. CPAP and BIPAP was given at night time which was helping her. BUN and creatinine was gradually getting worse went up to 89. BUN and creatinine 2.0. At that time the patient decided that comfort care measure only and the patient being transferred to [facility] for the comfort care. The patient's daughter who is the power of power sewing machine operator aware of the poor prognosis and poor outcome at this time and verbalized understanding. TIME SPENT: MORE THAN 65 MINUTES MTDD
== END 2017-09-08 16:18 | DRG 194 ==
LOC: MEDSURG A 12:53 → UNDOADMIN 13:11 → MEDSURG A 13:11
PROVIDERS: ADMIT Emergency Medicine; ATTEND Emergency Medicine
DX: J18.9 Pneumonia, unspecified organism (principal); J44.1 Chronic obstructive pulmonary disease with (acute) exacerbation; E87.2 Acidosis; I25.10 Atherosclerotic heart disease of native coronary artery without angina pectoris; I10 Essential (primary) hypertension; I50.9 Heart failure, unspecified; R60.9 Edema, unspecified; M06.9 Rheumatoid arthritis, unspecified; M19.90 Unspecified osteoarthritis, unspecified site; Z95.0 Presence of cardiac pacemaker; Z85.828 Personal history of other malignant neoplasm of skin; H91.90 Unspecified hearing loss, unspecified ear
CPT/HCPCS: 36415; 80053; 80202; 82803; 85025; 94640; 94660; 97802

== ENCOUNTER 2017-09-08 16:10 | Outpatient (CLI) | END 2017-09-08 16:11 | LOC: AMBL 16:10 | PROVIDERS: ATTEND Internal Medicine | DX: J44.1 Chronic obstructive pulmonary disease with (acute) exacerbation (principal); N18.9 Chronic kidney disease, unspecified ==